=== PATIENT | female | born 1945 | race Caucasian/White ===

== ENCOUNTER 2017-12-04 16:47 | Emergency (ER) | payer MEDICARE, BC ==
[2017-12-04 18:32] VITALS: BP 154/73
--- NOTE | 2017-12-04 18:52 | EDM.PDOC ---
ED HPI GENERAL MEDICAL PROBLEM - General Chief Complaint: General Stated Complaint: fell 11/02/17 hit head Time Seen by Provider: 12/04/17 18:40 Source of Information: Reports: Patient, RN History Limitations: Reports: No Limitations - History of Present Illness INITIAL COMMENTS - FREE TEXT/NARRATIVE: 72 yr female presents with an injury from yesterday. She fell going into an airplane in [facility]. She fell forward into the plane and fell into a wall. She doesn't remember how she landed. States there was uneven ledge getting into the plane. States she was bruised to her forehead and had some numbness to her left arm, which has resolved. States no change in her vision. Abrasion to her forhead and top of head. States pain to right middle, upper arm and pain to lower part of neck. Pt did fly from [facility] to [place] and then to [place] and gave her a ride to [place], last night. States frequency with urination through the night. She is alert and talkative and sitting upright and bracing herself with sitting up with her arms. Head Pain Score (Numeric/FACES): 6 - Related Data Allergies Allergy/AdvReac Type Severity Reaction Status Date / Time heparin Allergy Cannot Verified 12/04/17 18:45 Remember latex Allergy Cannot Verified 12/04/17 18:45 Remember Penicillins Allergy Anaphylactic Verified 12/04/17 18:45 Shock Home Meds: Home Meds Aspirin [Halfprin] 81 mg PO DAILY 11/20/15 [History] Cinnamon Bark [Cinnamon] 500 mg PO DAILY 11/20/15 [History] Clobetasol [Clobetasol Propionate 0.05%] 30 gm TOP BID 11/20/15 [History] Cyanocobalamin (Vitamin B-12) [B-12] 1,000 mcg PO DAILY 11/20/15 [History] Diltiazem HCl [Tiazac] 180 mg PO DAILY 11/20/15 [History] Losartan [Cozaar] 50 mg PO DAILY 11/20/15 [History] Multivitamin with Minerals [Multiple Vitamin] 1 tab PO DAILY 11/20/15 [History] Pravastatin [Pravachol] 20 mg PO DAILY 11/20/15 [History] Pregabalin [Lyrica] 75 mg PO DAILY 11/20/15 [History] metFORMIN [Glucophage] 500 mg PO TID 11/20/15 [History] traMADol [Ultram] 50 mg PO BID 11/20/15 [History] Acetam/Butalbital/Caffeine/Cod [Fioricet/Codeine 970-55-48-30 MG] 1 cap PO DAILY PRN 12/04/17 [History] Furosemide [Furosemide] 40 mg PO DAILY PRN 12/04/17 [History] Gabapentin [Neurontin] 300 mg PO TID 12/04/17 [History] Past Medical History HEENT History: Reports: Impaired Vision Cardiovascular History: Reports: Hypertension 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 Denies: Weakness, Fatigue HEENT: Reports: Glasses. Denies: Dental Pain, Ear Pain, Eye Pain, Nosebleed, Nose Pain, Vertigo Respiratory: Reports: No Symptoms. Denies: Shortness of Breath Cardiovascular: Reports: No Symptoms. Denies: Chest Pain GI/Abdominal: Reports: No Symptoms : Reports: Frequency Musculoskeletal: Reports: Neck Pain, Arm Pain Skin: Reports: Bruising (to forehead, resolving), Other (abrasion to forehead.) Neurological: Reports: Headache. Denies: Confusion, Dizziness, Numbness, Tingling, Trouble Speaking, Difficulty Walking Psychiatric: Reports: Confusion (States not thinking clearly all the time.) Hematologic/Lymphatic: Reports: No Symptoms Immunologic: Reports: No Symptoms ED EXAM, GENERAL - Physical Exam Exam: See Below Exam Limited By: No Limitations General Appearance: Alert, No Apparent Distress Eye Exam: Bilateral Eye: PERRL Ears: Hearing Grossly Normal Ear Exam: Bilateral Ear: Auricle Normal Nose: Normal Inspection. No: Nasal Deformity Throat/Mouth: Normal Teeth, Normal Gums, Normal Voice, No Airway Compromise Head: Other (swelling to forehead, bruising resolving) Neck: Supple, Non-Tender, Full Range of Motion, Other (pain to lower cervical spine) Respiratory/Chest: No Respiratory Distress, Lungs Clear, Normal Breath Sounds. No: Respiratory Distress Cardiovascular: Regular Rate, Rhythm, No Edema Back Exam: Normal Inspection, Full Range of Motion Extremities: Normal Capillary Refill, Arm Pain (pain with palpation to humerus, midshaft). No: Leg Pain Neurological: Alert, Oriented, Normal Cognition, Normal Gait Psychiatric: Normal Affect, Normal Mood Skin Exam: Warm, Dry, Normal Color, Other (linear abrasion to forehead and abrasion to middle, top of head) Course - Vital Signs Last Recorded V/S: Last Vital Signs Temp 98.4 F 12/04/17 18:44 Pulse 99 12/04/17 18:44 Resp 16 12/04/17 18:44 BP 154/73 H 12/04/17 18:44 Pulse Ox 98 12/04/17 18:29 - Orders/Labs/Meds Orders: Active Orders 24 hr Category Date Time Status Cervical Spine 2V or 3V [CR] Stat Exams 12/04/17 18:46 Stop Req Cervical Spine wo Cont [CT] Stat Exams 12/04/17 18:54 Taken Head wo Cont [CT] Stat Exams 12/04/17 18:45 Taken Humerus Rt [CR] Stat Exams 12/04/17 18:45 Taken - Re-Assessments/Exams Free Text/Narrative Re-Assessment/Exam: 12/04/17 22:42 LE 1929 Notified pt and of CT and x-ray results with no fractures, no hemorrhage. Normal head CT and normal humerus x-ray. Degenerative changes to cervical spine, no fracture. Recommend use of Tylenol or Ibuprofen as needed for pain. Monitor for any changes or weakness and return if increase in symptoms. Pt walked to x-ray and to CT room without difficulty. No dizziness and no complaints. Will discharge to home and self care with assist of . Departure - Departure Time of Disposition: 19:40 Disposition: Home, Self-Care 01 Condition: Good Clinical Impression: History of fall, Right upper limb pain, Neck pain - Discharge Information Referrals: PCP,Unknown [Primary Care Provider] - Forms: ED Department Discharge Additional Instructions: May continue with ibuprofen according to package instructions as needed for pain. Follow up in clinic as needed. - My Orders Last 24 Hours: My Active Orders 12/04/17 18:45 Head wo Cont [CT] Stat Humerus Rt [CR] Stat 12/04/17 18:46 Cervical Spine 2V or 3V [CR] Stat 12/04/17 18:54 Cervical Spine wo Cont [CT] Stat - Assessment/Plan Last 24 Hours: My Active Orders 12/04/17 18:45 Head wo Cont [CT] Stat Humerus Rt [CR] Stat 12/04/17 18:46 Cervical Spine 2V or 3V [CR] Stat 12/04/17 18:54 Cervical Spine wo Cont [CT] Stat
--- NOTE | 2017-12-05 11:21 | CT ---
DATE OF SERVICE: 12/04/17 CLINICAL DATA: Injury UNENHANCED BRAIN CT: Multislice acquisition through the brain without IV contrast was performed. No priors. No masses or mass effect. No intracranial hemorrhage. No evidence of acute or subacute infarct. No fractures. IMPRESSION: Normal exam. [id number] [facility]
--- NOTE | 2017-12-05 11:24 | CR ---
DATE OF SERVICE: 12/04/17 CLINICAL DATA: Injury RIGHT HUMERUS: Two AP views were performed. No evidence of fracture or dislocation, however, a fracture cannot be excluded on a single projection. 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 [id number] [facility]
--- NOTE | 2017-12-05 11:30 | CT ---
DATE OF SERVICE: 12/04/17 CLINICAL DATA: Injury CERVICAL SPINE CT: Multislice axial acquisition was performed. Axial images and sagittal and coronal reformations are reviewed. No priors. Motion artifact does degrade image quality. There is reversal of the normal cervical lordosis on the sagittal reformations. This is most likely positional or due to muscle spasm. There is 2 mm anterolisthesis of C3 on C4 and of C4 on C5. No acute fracture or dislocation. No focal lytic or blastic bone lesions. There is degenerative disc disease at multiple levels, greatest at the C5-6 and C6-7 levels. There is annular bulging of the C3-4 disc. There is uncinate joint hypertrophy at this level. There is mild bilateral neural foramen stenosis. There is annular bulging of the C5-6 disc. It does produce ventral effacement of the dural sac. There is facet joint and uncinate joint hypertrophy at this level. There is mild central and mild neural foramen stenosis bilaterally. There is annular bulging of the C6-7 disc. It produces ventral effacement of the dural sac. There is uncinate joint hypertrophy at this level. There is mild central and mild neural foramen stenosis bilaterally. The soft tissues are unremarkable. No other significant findings. IMPRESSION: No acute abnormalities. Degenerative changes at multiple levels as discussed above. [id number] [facility]
== END 2017-12-04 20:37 | disposition home or self-care (01) ==
LOC: LB.ED 16:47
DX: S00.81XA Abrasion of other part of head, initial encounter (principal); M54.2 Cervicalgia; M79.621 Pain in right upper arm; E11.9 Type 2 diabetes mellitus without complications; I10 Essential (primary) hypertension; Z88.8 Allergy status to other drugs, medicaments and biological substances; Z91.040 Latex allergy status; Z88.0 Allergy status to penicillin; Z79.82 Long term (current) use of aspirin; Z79.899 Other long term (current) drug therapy; Z87.891 Personal history of nicotine dependence; V97.0XXA Occupant of aircraft injured in other specified air transport accidents, initial encounter
CPT/HCPCS: 70450; 72125; 73060-RT; 99283; 99283-25

== ENCOUNTER 2018-06-17 12:56 | Emergency (ER) | payer MEDICARE, BC | END 2018-06-17 13:00 | disposition home or self-care (01) | LOC: LB.ED 12:56 | DX: Z53.21 Procedure and treatment not carried out due to patient leaving prior to being seen by health care provider (principal) | CPT/HCPCS: 99281 ==

== ENCOUNTER 2019-08-04 18:33 | Inpatient (IN) | payer MEDICARE ==
[2019-08-04] MEDS ORDERED: Pantoprazole 80 MG in Sodium Chloride 0.9% 100 ML IV ONE (19:16)
[2019-08-04] MEDS ORDERED: Sodium Chloride 0.9% 10 ML Syringe FLUSH PRN ×2 (19:17→19:24)
--- NOTE | 2019-08-04 20:04 | EDM.PDOC ---
ED HPI GENERAL MEDICAL PROBLEM - General Chief Complaint: Gastrointestinal Problem Stated Complaint: BLACK STOOL & EMESIS, WEAKNESS Time Seen by Provider: 08/04/19 18:40 Source of Information: Reports: Patient History Limitations: Reports: No Limitations - History of Present Illness INITIAL COMMENTS - FREE TEXT/NARRATIVE: According to patient she has been having black tarry stools since today morning. Stools are small in volume and frequent . Strong smell to it. She has had 8 bouts of black stools. Her last episode was at 4:4=30 PM since then she has not had any more stools. No abdominal pain or bloating. No heartburn or dyspepsia symptoms.No fever or chills. Claims she feels weak. No blurry vision, no dizziness or syncope. Also she claims she vomited once in the afternoon, which had coffee ground coloured vomitus. Has not had any more. no nausea. pt has Kenalog shot yesterday for her shoulder pain. Onset: Today Onset Date: 08/04/19 Onset Time: 07:00 Severity: Moderate Associated Symptoms: Reports: Nausea/Vomiting, Weakness. Denies: Confusion, Chest Pain, Cough, Diaphoresis, Fever/Chills, Headaches, Rash, Seizure, Shortness of Breath, Syncope - Related Data Allergies Allergy/AdvReac Type Severity Reaction Status Date / Time heparin Allergy Cannot Verified 08/04/19 19:13 Remember latex Allergy Cannot Verified 08/04/19 19:13 Remember Penicillins Allergy Anaphylactic Verified 08/04/19 19:13 Shock Home Meds: Home Meds Aspirin [Halfprin] 81 mg PO DAILY 11/20/15 [History] Cinnamon Bark [Cinnamon] 500 mg PO DAILY 11/20/15 [History] Diltiazem HCl [Tiazac] 180 mg PO DAILY 11/20/15 [History] Losartan [Cozaar] 50 mg PO DAILY 11/20/15 [History] Multivitamin with Minerals [Multiple Vitamin] 1 tab PO DAILY 11/20/15 [History] Pravastatin [Pravachol] 40 mg PO BEDTIME 11/20/15 [History] Pregabalin [Lyrica] 75 mg PO DAILY 11/20/15 [History] metFORMIN [Glucophage] 500 mg PO TID 11/20/15 [History] traMADol [Ultram] 50 mg PO BID 11/20/15 [History] Acetam/Butalbital/Caffeine/Cod [Fioricet/Codeine 354-08-71-30 MG] 1 cap PO DAILY PRN 12/04/17 [History] Furosemide 40 mg PO DAILY PRN 12/04/17 [History] Past Medical History HEENT History: Reports: Impaired Vision Cardiovascular History: Reports: Hypertension 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 Denies: Fever, Chills HEENT: Denies: Ear Pain, Eye Discharge, Rhinitis, Sinus Problem Respiratory: Denies: Shortness of Breath, Cough, Sputum Cardiovascular: Denies: Chest Pain, Lightheadedness GI/Abdominal: Reports: Black Stool, Hematemesis, Melena, Vomiting. Denies: Abdominal Pain, Constipation, Diarrhea, Hematochezia, Nausea Musculoskeletal: Denies: Joint Pain, Joint Swelling Skin: Denies: Bruising, Pruritis, Rash Neurological: Denies: Confusion, Dizziness, Headache, Numbness, Tingling Psychiatric: Denies: Agitation, Anxiety, Confusion, Cravings, Depression ED EXAM, GENERAL - Physical Exam Exam: See Below Exam Limited By: No Limitations General Appearance: Alert, WD/WN, No Apparent Distress, Other (Pt is happy and very comfortnble in the exam room.) Eye Exam: Bilateral Eye: EOMI, PERRL Ears: Normal External Exam, Normal Canal, Hearing Grossly Normal, Normal TMs Ear Exam: Bilateral Ear: Auricle Normal, Canal Normal, TM normal Nose: Normal Inspection, Normal Mucosa, No Blood Throat/Mouth: Normal Inspection, Normal Lips, Normal Teeth, Normal Gums, Normal Oropharynx, Normal Voice, No Airway Compromise Head: Atraumatic, Normocephalic Neck: Normal Inspection, Supple, Non-Tender, Full Range of Motion Respiratory/Chest: No Respiratory Distress, Lungs Clear, Normal Breath Sounds, No Accessory Muscle Use, Chest Non-Tender Cardiovascular: Normal Peripheral Pulses, Regular Rate, Rhythm, No Edema, No Gallop, No JVD, No Murmur, No Rub GI/Abdominal: Normal Bowel Sounds, Soft, Non-Tender, No Organomegaly, No Distention, No Abnormal Bruit, No Mass Back Exam: Normal Inspection, Full Range of Motion, NT Extremities: Normal Inspection, Normal Range of Motion, Non-Tender, Normal Capillary Refill, No Pedal Edema Neurological: Alert, Oriented, CN II-XII Intact, Normal Cognition, Normal Gait, Normal Reflexes, No Motor/Sensory Deficits Skin Exam: Warm, Intact Course - Vital Signs Text/Narrative:: Pt is 73 year old female who has had several episodes of tarry stools over the day. Also she has been had one episode of coffee ground emesis today. Her vomitus sample she brought from home is positive for blood. Pt's vitals are stable. She does not have any abdominal pain or discomfort. She does have his of colonic diverticulosis. Considering her painless GI bleed, it does appear like diverticular bleed. Did get work up. Her CBC shows hemoglobin of 9.4 , which has dropped from 12.7 in 2018. Also her LFT is normal. BMP shows elevated potassium of 5.8 and her BUN is 104 and creat of 1.7. Her PT and PTT are normal. Lipase negative. CT abdomen and pelvis done today show no active blood in the GI tract. Does have severe diverticulosis.Her alerted renal function is related to her GI bleed. Plan is to admit patient for observation. Will repeat H/H at 11 PM. And if stable and if she does not have any more GI bleed, could repeat one at 7 AM. If she does have active bleed her next H/H should be at 3 am. If patient continue to have a drop in 3 serial H/H will have GI consult. If her H/H is stable, will plan on discharge in Am and have out patient Upper and Lower GI workup. It does appear like a diverticular bleed, which has stopped at this time, considering her painless GI bleed. - Orders/Labs/Meds Orders: Active Orders 24 hr Category Date Time Status Abdomen Pelvis wo Cont [CT] Stat Exams 08/04/19 19:11 Taken INR,PT,PROTHROMBIN TIME [COAG] Stat Lab 08/04/19 19:24 Ordered PTT,PARTIAL THROMBOPLSTIN TIME [COAG] Stat Lab 08/04/19 19:24 Ordered Sodium Chloride 0.9% [Saline Flush] Med 08/04/19 19:17 Active 10 ml FLUSH ASDIRECTED PRN Sodium Chloride 0.9% [Saline Flush] Med 08/04/19 19:24 Active 10 ml FLUSH ASDIRECTED PRN Peripheral IV Insertion Adult [OM.PC] Routine Oth 08/04/19 19:24 Ordered Medication Orders Sodium Chloride (Saline Flush) 10 ml FLUSH ASDIRECTED PRN PRN Reason: Keep Vein Open Sodium Chloride (Saline Flush) 10 ml FLUSH ASDIRECTED PRN PRN Reason: Keep Vein Open Labs: Laboratory Tests 08/04/19 08/04/19 08/04/19 Range/Units 19:00 19:00 19:00 WBC 8.8 D (4.0-11.0) K/uL RBC 3.36 L (3.80-5.80) M/uL Hgb 9.4 L D (11.5-16.5) g/dL Hct 29.3 L D (37.0-47.0) % MCV 87 (76-96) fL MCH 28.0 (27.0-32.0) pg MCHC 32.1 (31.0-35.0) g/dL RDW 13.3 (11.0-16.0) % Plt Count 313 (150-500) K/uL MPV 10.3 H (6.0-10.0) fL Neut % (Auto) 80.1 H (45.0-70.0) % Lymph % (Auto) 12.9 L (20.0-40.0) % Wilkes % (Auto) 6.8 (3.0-10.0) % Eos % (Auto) 0.0 L (1.0-5.0) % Baso % (Auto) 0.2 (0.0-0.5) % Neut # (Auto) 7.01 (2.00-7.50) K/uL Lymph # (Auto) 1.13 L (1.50-4.00) K/uL Wilkes # (Auto) 0.60 (0.20-0.80) K/uL Eos # (Auto) 0.00 L (0.04-0.40) K/uL Baso # (Auto) 0.02 (0.02-0.10) K/uL Sodium 138 (136-145) mmol/L Potassium 5.2 H (3.5-5.1) mmol/L Chloride 102 (98-107) mmol/L Carbon Dioxide 26.4 (21.0-32.0) mmol/L Anion Gap 14.8 (5.0-15.0) mmol/L BUN 102 H* D (8-26) mg/dL Creatinine 1.75 H D (0.55-1.02) mg/dL Est Cr Clr Drug Dosing 23.68 mL/min Estimated GFR (MDRD) 28 L (>60) MLS/MIN BUN/Creatinine Ratio 58.3 H (6-25) Glucose 336 H D (74-100) mg/dL Calcium 8.9 (8.5-10.1) mg/dL Total Bilirubin 0.3 (0.0-1.0) mg/dL AST 12 L (15-37) U/L ALT 15 (12-78) U/L Alkaline Phosphatase 54 (46-116) U/L Total Protein 6.9 (6.4-8.2) g/dL Albumin 3.0 L (3.4-5.0) g/dL Globulin 3.9 (2.2-4.2) g/dL Albumin/Globulin Ratio 0.8 (0.8-2.0) Lipase 212 D (73-393) U/L Meds: Medications Generic Name Dose Route Start Last Admin Trade Name Freq PRN Reason Stop Dose Admin Sodium Chloride 10 ml 08/04/19 19:17 Saline Flush FLUSH ASDIRECTED PRN Keep Vein Open Sodium Chloride 10 ml 08/04/19 19:24 Saline Flush FLUSH ASDIRECTED PRN Keep Vein Open Discontinued Medications Generic Name Dose Route Start Last Admin Trade Name Freq PRN Reason Stop Dose Admin Pantoprazole Sodium 80 mg/ 100 mls @ 200 mls/hr 08/04/19 19:16 08/04/19 19:30 Sodium Chloride IV 08/04/19 19:45 200 mls/hr .BOLUS ONE Administration Departure - Departure Time of Disposition: 20:20 Disposition: Home, Self-Care 01 Condition: Fair Clinical Impression: Acute lower GI bleeding - Discharge Information *PRESCRIPTION DRUG MONITORING PROGRAM REVIEWED*: Not Applicable *COPY OF PRESCRIPTION DRUG MONITORING REPORT IN PATIENT YING: Not Applicable - Problem List & Annotations (1) Acute lower GI bleeding SNOMED Code(s): 07836499 Code(s): K92.2 - GASTROINTESTINAL HEMORRHAGE, UNSPECIFIED Status: Acute Current Visit: Yes - Problem List Review Problem List Initiated/Reviewed/Updated: Yes - My Orders Last 24 Hours: My Active Orders 08/04/19 19:11 Abdomen Pelvis wo Cont [CT] Stat 08/04/19 19:17 Sodium Chloride 0.9% [Saline Flush] 10 ml FLUSH ASDIRECTED PRN 08/04/19 19:24 INR,PT,PROTHROMBIN TIME [COAG] Stat PTT,PARTIAL THROMBOPLSTIN TIME [COAG] Stat Sodium Chloride 0.9% [Saline Flush] 10 ml FLUSH ASDIRECTED PRN Peripheral IV Insertion Adult [OM.PC] Routine - Assessment/Plan Last 24 Hours: My Active Orders 08/04/19 19:11 Abdomen Pelvis wo Cont [CT] Stat 08/04/19 19:17 Sodium Chloride 0.9% [Saline Flush] 10 ml FLUSH ASDIRECTED PRN 08/04/19 19:24 INR,PT,PROTHROMBIN TIME [COAG] Stat PTT,PARTIAL THROMBOPLSTIN TIME [COAG] Stat Sodium Chloride 0.9% [Saline Flush] 10 ml FLUSH ASDIRECTED PRN Peripheral IV Insertion Adult [OM.PC] Routine Assessment:: Acute lower GI bleed Plan: Pt is 73 year old female who has had several episodes of tarry stools over the day. Also she has been had one episode of coffee ground emesis today. Her vomitus sample she brought from home is positive for blood. Pt's vitals are stable. She does not have any abdominal pain or discomfort. She does have his of colonic diverticulosis. Considering her painless GI bleed, it does appear like diverticular bleed. Did get work up. Her CBC shows hemoglobin of 9.4 , which has dropped from 12.7 in 2018. Also her LFT is normal. BMP shows elevated potassium of 5.8 and her BUN is 104 and creat of 1.7. Her PT and PTT are normal. Lipase negative. CT abdomen and pelvis done today show no active blood in the GI tract. Does have severe diverticulosis.Her alerted renal function is related to her GI bleed. Plan is to admit patient for observation. Will repeat H/H at 11 PM. And if stable and if she does not have any more GI bleed, could repeat one at 7 AM. If she does have active bleed her next H/H should be at 3 am. If patient continue to have a drop in 3 serial H/H will have GI consult. If her H/H is stable, will plan on discharge in Am and have out patient Upper and Lower GI workup. It does appear like a diverticular bleed, which has stopped at this time, considering her painless GI bleed.
[2019-08-04] MEDS: Sodium Chloride 0.9% 1,000 ML IV SCH (21:00)
[2019-08-05] MEDS: Pantoprazole 40 MG Vial IVPUSH SCH (08:03)
[2019-08-05] MEDS: Sodium Chloride 0.9% 1,000 ML IV SCH ×2 (08:32→20:27)
[2019-08-05] MEDS ORDERED: Furosemide 40 MG Tab PO PRN (08:53)
--- NOTE | 2019-08-05 09:08 | PCM.PN ---
- General Info Date of Service: 08/05/19 Subjective Update: PLEASE USE H&P for INPATIENT ADMIT This is a 73yo F who was placed in observation for GI bleeding and weakness. Her hemoglobin has steadily declined and she has continued active bleeding per rectum. Patient continues to feel weak and tired. She continues to have tarry stools. Denies any shortness of breath or chest pain. Her labs show persistent end organ damage of the kidnys. - Review of Systems General: Reports: Weakness, Fatigue HEENT: Reports: No Symptoms Pulmonary: Reports: No Symptoms Cardiovascular: Reports: No Symptoms Gastrointestinal: Reports: Decreased Appetite, Melena Genitourinary: Reports: No Symptoms Musculoskeletal: Reports: No Symptoms Skin: Reports: No Symptoms Neurological: Reports: Weakness - Patient Data Vitals - Most Recent: Last Vital Signs Temp 36.9 C 08/05/19 08:00 Pulse 96 08/05/19 08:00 Resp 18 08/05/19 08:00 BP 147/57 H 08/05/19 08:00 Pulse Ox 98 08/05/19 08:00 Weight - Most Recent: 91.898 kg I&O - Last 24 Hours: Intake & Output 08/04/19 08/05/19 08/05/19 22:59 06:59 14:59 Intake Total 1000 Output Total 1100 Balance -100 Lab Results Last 24 Hours: Laboratory Results - last 24 hr 08/04/19 08/04/19 08/04/19 Range/Units 19:00 19:00 19:00 WBC (4.0-11.0) K/uL RBC (3.80-5.80) M/uL Hgb (11.5-16.5) g/dL Hct (37.0-47.0) % MCV (76-96) fL MCH (27.0-32.0) pg MCHC (31.0-35.0) g/dL RDW (11.0-16.0) % Plt Count (150-500) K/uL MPV (6.0-10.0) fL Neut % (Auto) (45.0-70.0) % Lymph % (Auto) (20.0-40.0) % [place] % (Auto) (3.0-10.0) % Eos % (Auto) (1.0-5.0) % Baso % (Auto) (0.0-0.5) % Neut # (Auto) (2.00-7.50) K/uL Lymph # (Auto) (1.50-4.00) K/uL [place] # (Auto) (0.20-0.80) K/uL Eos # (Auto) (0.04-0.40) K/uL Baso # (Auto) (0.02-0.10) K/uL PT 10.5 (9.0-11.5) sec INR 1.1 (1.0-3.5) APTT 18.8 L (24.4-33.2) SECONDS Sodium 138 (136-145) mmol/L Potassium 5.2 H (3.5-5.1) mmol/L Chloride 102 (98-107) mmol/L Carbon Dioxide 26.4 (21.0-32.0) mmol/L Anion Gap 14.8 (5.0-15.0) mmol/L BUN 102 H* D (8-26) mg/dL Creatinine 1.75 H D (0.55-1.02) mg/dL Est Cr Clr Drug Dosing 23.68 mL/min Estimated GFR (MDRD) 28 L (>60) MLS/MIN BUN/Creatinine Ratio 58.3 H (6-25) Glucose 336 H D (74-100) mg/dL Calcium 8.9 (8.5-10.1) mg/dL Total Bilirubin 0.3 (0.0-1.0) mg/dL AST 12 L (15-37) U/L ALT 15 (12-78) U/L Alkaline Phosphatase 54 (46-116) U/L Total Protein 6.9 (6.4-8.2) g/dL Albumin 3.0 L (3.4-5.0) g/dL Globulin 3.9 (2.2-4.2) g/dL Albumin/Globulin Ratio 0.8 (0.8-2.0) Lipase 212 D (73-393) U/L 08/04/19 08/04/19 08/05/19 Range/Units 19:00 23:00 07:15 WBC 8.8 D 8.6 (4.0-11.0) K/uL RBC 3.36 L 2.95 L (3.80-5.80) M/uL Hgb 9.4 L D 8.8 L 8.2 L (11.5-16.5) g/dL Hct 29.3 L D 27.9 L 25.5 L (37.0-47.0) % MCV 87 86 (76-96) fL MCH 28.0 27.8 (27.0-32.0) pg MCHC 32.1 32.2 (31.0-35.0) g/dL RDW 13.3 13.4 (11.0-16.0) % Plt Count 313 282 (150-500) K/uL MPV 10.3 H 10.5 H (6.0-10.0) fL Neut % (Auto) 80.1 H 71.0 H (45.0-70.0) % Lymph % (Auto) 12.9 L 21.2 (20.0-40.0) % [place] % (Auto) 6.8 7.2 (3.0-10.0) % Eos % (Auto) 0.0 L 0.1 L (1.0-5.0) % Baso % (Auto) 0.2 0.5 (0.0-0.5) % Neut # (Auto) 7.01 6.11 (2.00-7.50) K/uL Lymph # (Auto) 1.13 L 1.82 (1.50-4.00) K/uL [place] # (Auto) 0.60 0.62 (0.20-0.80) K/uL Eos # (Auto) 0.00 L 0.01 L (0.04-0.40) K/uL Baso # (Auto) 0.02 0.04 (0.02-0.10) K/uL PT (9.0-11.5) sec INR (1.0-3.5) APTT (24.4-33.2) SECONDS Sodium (136-145) mmol/L Potassium (3.5-5.1) mmol/L Chloride (98-107) mmol/L Carbon Dioxide (21.0-32.0) mmol/L Anion Gap (5.0-15.0) mmol/L BUN (8-26) mg/dL Creatinine (0.55-1.02) mg/dL Est Cr Clr Drug Dosing mL/min Estimated GFR (MDRD) (>60) MLS/MIN BUN/Creatinine Ratio (6-25) Glucose (74-100) mg/dL Calcium (8.5-10.1) mg/dL Total Bilirubin (0.0-1.0) mg/dL AST (15-37) U/L ALT (12-78) U/L Alkaline Phosphatase (46-116) U/L Total Protein (6.4-8.2) g/dL Albumin (3.4-5.0) g/dL Globulin (2.2-4.2) g/dL Albumin/Globulin Ratio (0.8-2.0) Lipase (73-393) U/L 08/05/19 Range/Units 07:15 WBC (4.0-11.0) K/uL RBC (3.80-5.80) M/uL Hgb (11.5-16.5) g/dL Hct (37.0-47.0) % MCV (76-96) fL MCH (27.0-32.0) pg MCHC (31.0-35.0) g/dL RDW (11.0-16.0) % Plt Count (150-500) K/uL MPV (6.0-10.0) fL Neut % (Auto) (45.0-70.0) % Lymph % (Auto) (20.0-40.0) % [place] % (Auto) (3.0-10.0) % Eos % (Auto) (1.0-5.0) % Baso % (Auto) (0.0-0.5) % Neut # (Auto) (2.00-7.50) K/uL Lymph # (Auto) (1.50-4.00) K/uL [place] # (Auto) (0.20-0.80) K/uL Eos # (Auto) (0.04-0.40) K/uL Baso # (Auto) (0.02-0.10) K/uL PT (9.0-11.5) sec INR (1.0-3.5) APTT (24.4-33.2) SECONDS Sodium 139 (136-145) mmol/L Potassium 4.7 (3.5-5.1) mmol/L Chloride 107 (98-107) mmol/L Carbon Dioxide 24.7 (21.0-32.0) mmol/L Anion Gap 12.0 (5.0-15.0) mmol/L BUN 105 H* (8-26) mg/dL Creatinine 1.48 H (0.55-1.02) mg/dL Est Cr Clr Drug Dosing 28.00 mL/min Estimated GFR (MDRD) 35 L (>60) MLS/MIN BUN/Creatinine Ratio 70.9 H (6-25) Glucose 203 H D (74-100) mg/dL Calcium 8.4 L (8.5-10.1) mg/dL Total Bilirubin (0.0-1.0) mg/dL AST (15-37) U/L ALT (12-78) U/L Alkaline Phosphatase (46-116) U/L Total Protein (6.4-8.2) g/dL Albumin (3.4-5.0) g/dL Globulin (2.2-4.2) g/dL Albumin/Globulin Ratio (0.8-2.0) Lipase (73-393) U/L [place] Results Last 24 Hours: Microbiology 08/04/19 19:05 Gastric Occult Blood - Final Gastric Fluid Med Orders - Current: Current Medications Furosemide (Lasix) 40 mg PO DAILY PRN PRN Reason: Edema Sodium Chloride (Normal Saline) 1,000 mls @ 100 mls/hr IV ASDIRECTED [facility] Last Admin: 08/05/19 08:32 Dose: 100 mls/hr Losartan Potassium (Cozaar) 50 mg PO DAILY [facility] Metformin HCl (Glucophage) 500 mg PO TID [facility] Non-Formulary Medication (Diltiazem Hcl [Tiazac]) 180 mg PO DAILY [facility] Non-Formulary Medication (Multivitamin With Minerals [Multiple Vitamin]) 1 tab PO DAILY [facility] Pantoprazole Sodium (Protonix Iv) 40 mg IVPUSH DAILY [facility] Last Admin: 08/05/19 08:03 Dose: 40 mg Pravastatin Sodium (Pravachol) 40 mg PO BEDTIME [facility] Sodium Chloride (Saline Flush) 10 ml FLUSH ASDIRECTED PRN PRN Reason: Keep Vein Open Discontinued Medications Pantoprazole Sodium 80 mg/ (Sodium Chloride) 100 mls @ 200 mls/hr IV .BOLUS ONE Stop: 08/04/19 19:45 Last Admin: 08/04/19 19:30 Dose: 200 mls/hr Sodium Chloride (Saline Flush) 10 ml FLUSH ASDIRECTED PRN PRN Reason: Keep Vein Open - Exam General: Alert, Oriented, Cooperative HEENT: Pupils Equal, Pupils Reactive, EOMI Neck: Supple Lungs: Clear to Auscultation, Normal Respiratory Effort Cardiovascular: Regular Rate, Regular Rhythm GI/Abdominal Exam: Normal Bowel Sounds, Soft, Non-Tender Back Exam: Normal Inspection Extremities: Normal Inspection, Normal Range of Motion Peripheral Pulses: 2+: Dorsalis Pedis (L), Dorsalis Pedis (R) Skin: Warm, Dry, Intact Neurological: No New Focal Deficit Psy/Mental Status: Alert, Normal Affect, Normal Mood - Problem List & Annotations (1) Upper GI bleeding SNOMED Code(s): 17229180 Code(s): K92.2 - GASTROINTESTINAL HEMORRHAGE, UNSPECIFIED Status: Acute Priority: High Current Visit: Yes (2) Drop in hematocrit SNOMED Code(s): 158095356 Code(s): R71.0 - PRECIPITOUS DROP IN HEMATOCRIT Status: Acute Priority: High Current Visit: Yes (3) Hemoglobin drop SNOMED Code(s): 944668062 Code(s): R71.0 - PRECIPITOUS DROP IN HEMATOCRIT Status: Acute Priority: High Current Visit: Yes (4) Acute renal insufficiency SNOMED Code(s): 176793229 Code(s): N28.9 - DISORDER OF KIDNEY AND URETER, UNSPECIFIED Status: Acute Priority: High Current Visit: Yes - Problem List Review Problem List Initiated/Reviewed/Updated: Yes - My Orders Last 24 Hours: My Active Orders 08/05/19 08:50 Patient Status [ADT] Routine Oxygen Therapy [RC] PRN Vital Signs [RC] Q4H 08/05/19 08:53 Furosemide [Lasix] 40 mg PO DAILY PRN 08/05/19 14:00 metFORMIN [Glucophage] 500 mg PO TID 08/05/19 20:00 Pravastatin [Pravachol] 40 mg PO BEDTIME 08/06/19 08:00 Diltiazem HCl [Tiazac] 180 mg PO DAILY Losartan [Cozaar] 50 mg PO DAILY Multivitamin with Minerals [Multiple Vitamin] 1 tab PO DAILY - Plan Plan:: Patient to be admitted to inpatient for ongoing active GI bleed with decreasing hematocrit as following during observation. Patient also shows acute renal insufficiency as resulting end-organ damage from likely anemia secondary to GI bleed. We will continued close monitoring for the need to transfer or transfuse. Monitor vitals closely. Repeat labs in am.
--- NOTE | 2019-08-05 09:18 | CT ---
DATE OF SERVICE: 08/04/19 CLINICAL DATA: SUSPECTED GI BLEED UNENHANCED ABDOMEN AND PELVIC CT: Multislice acquisition through the abdomen and pelvis without IV or oral contrast was performed. Comparison is made to a prior exam dated 11/20/15. The lung bases are clear. The liver is normal size with homogeneous attenuation. No focal hepatic lesions. The gallbladder appears normal. The spleen appears normal. The pancreas appears normal. The right and left adrenals appear normal. There are low density lesions in both kidneys consistent with bilateral renal cysts. The kidneys otherwise appear normal. No nephrocalcinosis or nephrolithiasis. No hydronephrosis or hydroureter. The bladder is partially fluid-filled. It appears normal. The patient is status post hysterectomy. No evidence of appendicitis. There is diverticulosis of the descending and sigmoid colon. No evidence of diverticulitis. No free air. No free fluid. No dilated loops of bowel. No adenopathy. No aortic aneurysm. There is a small umbilical hernia containing fat. There is degenerative disc disease throughout the lower thoracic and lumbar spine. There is a partial compression fracture of the T12 vertebra. There is also mild compression deformity of the superior endplate of L3. No other significant findings. IMPRESSION: No acute abnormalities. Other findings as discussed above. [id number] [facility]
[2019-08-05] MEDS: metFORMIN 500 MG Tab PO SCH ×2 (12:15→17:55)
[2019-08-05] MEDS: Pravastatin 40 MG Tab PO SCH (20:26)
[2019-08-06] MEDS: Pantoprazole 40 MG Vial IVPUSH SCH (07:35)
[2019-08-06] MEDS: metFORMIN 500 MG Tab PO SCH ×3 (07:44→17:16)
[2019-08-06] MEDS: Multivitamins with Iron/Calcium/Folic Acid/Minerals Tab PO SCH (07:44)
[2019-08-06] MEDS: Diltiazem 180 MG Cap.CD PO SCH (07:44)
[2019-08-06] MEDS: Losartan 50 MG Tab PO SCH (07:45)
--- NOTE | 2019-08-06 10:07 | PCM.PN ---
- General Info Date of Service: 08/06/19 Subjective Update: Patient has worsening symptoms. She feels weaker and fatigued. She notes improved melena. Denies any fever or chills. No chest pain or other concerns. - Review of Systems General: Reports: Weakness, Fatigue HEENT: Reports: No Symptoms Pulmonary: Reports: No Symptoms Cardiovascular: Reports: No Symptoms Gastrointestinal: Reports: Melena Genitourinary: Reports: No Symptoms Musculoskeletal: Reports: No Symptoms - Patient Data Vitals - Most Recent: Last Vital Signs Temp 36.6 C 08/06/19 08:35 Pulse 97 08/06/19 08:35 Resp 16 08/06/19 08:35 BP 159/99 H 08/06/19 08:35 Pulse Ox 94 L 08/06/19 08:35 Weight - Most Recent: 91.898 kg I&O - Last 24 Hours: Intake & Output 08/05/19 08/06/19 08/06/19 22:59 06:59 14:59 Intake Total 1025 Output Total 350 Balance -350 1025 Lab Results Last 24 Hours: Laboratory Results - last 24 hr 08/06/19 08/06/19 Range/Units 07:25 07:25 WBC 6.6 D (4.0-11.0) K/uL RBC 2.70 L (3.80-5.80) M/uL Hgb 7.7 L (11.5-16.5) g/dL Hct 23.4 L (37.0-47.0) % MCV 87 (76-96) fL MCH 28.5 (27.0-32.0) pg MCHC 32.9 (31.0-35.0) g/dL RDW 13.1 (11.0-16.0) % Plt Count 278 (150-500) K/uL MPV 10.4 H (6.0-10.0) fL Neut % (Auto) 68.3 (45.0-70.0) % Lymph % (Auto) 21.7 (20.0-40.0) % [place] % (Auto) 8.9 (3.0-10.0) % Eos % (Auto) 0.5 L (1.0-5.0) % Baso % (Auto) 0.6 H (0.0-0.5) % Neut # (Auto) 4.54 (2.00-7.50) K/uL Lymph # (Auto) 1.44 L (1.50-4.00) K/uL [place] # (Auto) 0.59 (0.20-0.80) K/uL Eos # (Auto) 0.03 L (0.04-0.40) K/uL Baso # (Auto) 0.04 (0.02-0.10) K/uL Sodium 144 (136-145) mmol/L Potassium 4.3 (3.5-5.1) mmol/L Chloride 111 H (98-107) mmol/L Carbon Dioxide 23.5 (21.0-32.0) mmol/L Anion Gap 13.8 (5.0-15.0) mmol/L BUN 62 H* D (8-26) mg/dL Creatinine 1.20 H (0.55-1.02) mg/dL Est Cr Clr Drug Dosing 34.54 mL/min Estimated GFR (MDRD) 44 L (>60) MLS/MIN BUN/Creatinine Ratio 51.7 H (6-25) Glucose 166 H (74-100) mg/dL Calcium 8.5 (8.5-10.1) mg/dL [place] Results Last 24 Hours: Microbiology 08/04/19 22:32 MRSA Surveillance Culture - Final Nares, Right NO MRSA ISOLATED Med Orders - Current: Current Medications Diltiazem HCl (Cardizem Cd) 180 mg PO DAILY [facility] Last Admin: 08/06/19 07:44 Dose: 180 mg Furosemide (Lasix) 40 mg PO DAILY PRN PRN Reason: Edema Losartan Potassium (Cozaar) 50 mg PO DAILY [facility] Last Admin: 08/06/19 07:45 Dose: 50 mg Metformin HCl (Glucophage) 500 mg PO TIDMEALS [facility] Last Admin: 08/06/19 07:44 Dose: 500 mg Multivitamins/Minerals (Thera M Plus) 1 tab PO DAILY [facility] Last Admin: 08/06/19 07:44 Dose: 1 tab Pantoprazole Sodium (Protonix Iv) 40 mg IVPUSH DAILY [facility] Last Admin: 08/06/19 07:35 Dose: 40 mg Pravastatin Sodium (Pravachol) 40 mg PO BEDTIME [facility] Last Admin: 08/05/19 20:26 Dose: 40 mg Sodium Chloride (Saline Flush) 10 ml FLUSH ASDIRECTED PRN PRN Reason: Keep Vein Open Discontinued Medications Pantoprazole Sodium 80 mg/ (Sodium Chloride) 100 mls @ 200 mls/hr IV .BOLUS ONE Stop: 08/04/19 19:45 Last Admin: 08/04/19 19:30 Dose: 200 mls/hr Sodium Chloride (Normal Saline) 1,000 mls @ 100 mls/hr IV ASDIRECTED [facility] Last Admin: 08/05/19 20:27 Dose: 100 mls/hr Sodium Chloride (Saline Flush) 10 ml FLUSH ASDIRECTED PRN PRN Reason: Keep Vein Open - Exam General: Alert, Oriented, Cooperative HEENT: Pupils Equal, Pupils Reactive, EOMI Neck: Supple Lungs: Clear to Auscultation, Normal Respiratory Effort Cardiovascular: Regular Rate, Regular Rhythm GI/Abdominal Exam: Normal Bowel Sounds, Soft, Non-Tender Back Exam: Normal Inspection Extremities: Normal Inspection - Problem List & Annotations (1) Upper GI bleeding SNOMED Code(s): 22962716 Code(s): K92.2 - GASTROINTESTINAL HEMORRHAGE, UNSPECIFIED Status: Acute Priority: High Current Visit: Yes (2) Drop in hematocrit SNOMED Code(s): 624740066 Code(s): R71.0 - PRECIPITOUS DROP IN HEMATOCRIT Status: Acute Priority: High Current Visit: Yes (3) Hemoglobin drop SNOMED Code(s): 217948753 Code(s): R71.0 - PRECIPITOUS DROP IN HEMATOCRIT Status: Acute Priority: High Current Visit: Yes (4) Acute renal insufficiency SNOMED Code(s): 687347461 Code(s): N28.9 - DISORDER OF KIDNEY AND URETER, UNSPECIFIED Status: Acute Priority: High Current Visit: Yes - Problem List Review Problem List Initiated/Reviewed/Updated: Yes - My Orders Last 24 Hours: My Active Orders 08/05/19 12:00 metFORMIN [Glucophage] 500 mg PO TIDMEALS 08/05/19 20:00 Pravastatin [Pravachol] 40 mg PO BEDTIME 08/06/19 08:00 Diltiazem [Cardizem CD] 180 mg PO DAILY Losartan [Cozaar] 50 mg PO DAILY Multivitamins w-Iron/Ca/FA/Min [Thera M Plus] 1 tab PO DAILY 08/06/19 10:03 RED BLOOD CELLS LP [BBK] Routine Transfuse Red Blood Cells [COMM] Routine - Plan Plan:: Patient to be admitted to inpatient for ongoing active GI bleed with decreasing hematocrit as following during observation. Patient also shows acute renal insufficiency as resulting end-organ damage from likely anemia secondary to GI bleed. We will continued close monitoring for the need to transfer or transfuse. Monitor vitals closely. Repeat labs in am. There is worsening hemoglobin and discussed transfusion with the patient. Patient agrees and has considered risks vs benefits. 2 Units of PRBCs to be transfused. Consent obtained. Counseled on slightly improved renal function. F/u labs in am after transfusion.
[2019-08-06] MEDS: Pravastatin 40 MG Tab PO SCH (19:58)
[2019-08-07] MEDS ORDERED: diphenhydrAMINE 50 MG Cap PO ONE (01:03)
[2019-08-07] MEDS: Diltiazem 180 MG Cap.CD PO SCH (07:59)
[2019-08-07] MEDS: metFORMIN 500 MG Tab PO SCH ×3 (08:00→17:08)
[2019-08-07] MEDS: Multivitamins with Iron/Calcium/Folic Acid/Minerals Tab PO SCH (08:00)
[2019-08-07] MEDS: Pantoprazole 40 MG Vial IVPUSH SCH (08:00)
[2019-08-07] MEDS: Losartan 50 MG Tab PO SCH (08:01)
[2019-08-07] MEDS ORDERED: Acetaminophen 500 MG Tab PO ONE (08:28)
[2019-08-07] MEDS: Pravastatin 40 MG Tab PO SCH (21:00)
[2019-08-07] MEDS ORDERED: diphenhydrAMINE 50 MG/ML SDV ONE (22:21)
[2019-08-07] MEDS ORDERED: diphenhydrAMINE 25 MG Cap ONE (22:22)
[2019-08-08] MEDS: Multivitamins with Iron/Calcium/Folic Acid/Minerals Tab PO SCH (09:15)
[2019-08-08] MEDS: Diltiazem 180 MG Cap.CD PO SCH (09:16)
[2019-08-08] MEDS: Losartan 50 MG Tab PO SCH (09:16)
[2019-08-08] MEDS: Pantoprazole 40 MG Vial IVPUSH SCH (09:17)
[2019-08-08] MEDS: metFORMIN 500 MG Tab PO SCH (09:20)
[2019-08-08 09:21] VITALS: BP 142/64; PULSE 91
--- NOTE | 2019-08-08 10:07 | PCM.PN ---
- General Info Date of Service: 08/07/19 Subjective Update: This is a 73yo F with a headache today post transfusion. She denies any visual concerns and does feel slightly improved. No fever or chills. No shortness of breath or chest pain. She notes some improvement in weakness. - Review of Systems General: Reports: Weakness HEENT: Reports: No Symptoms Pulmonary: Reports: No Symptoms Cardiovascular: Reports: No Symptoms Gastrointestinal: Reports: Melena Genitourinary: Reports: No Symptoms Musculoskeletal: Reports: No Symptoms - Patient Data Vitals - Most Recent: Last Vital Signs Temp 36.3 C 08/08/19 08:00 Pulse 91 08/08/19 09:16 Resp 16 08/08/19 08:00 BP 142/64 H 08/08/19 09:16 Pulse Ox 95 08/08/19 08:00 Weight - Most Recent: 91.898 kg I&O - Last 24 Hours: Intake & Output 08/07/19 08/08/19 08/08/19 22:59 06:59 14:59 Intake Total 600 300 Output Total 1000 400 Balance -400 -100 Lab Results Last 24 Hours: Laboratory Results - last 24 hr 08/07/19 08/08/19 08/08/19 Range/Units 16:50 08:17 08:20 WBC 9.1 (4.0-11.0) K/uL RBC 3.99 (3.80-5.80) M/uL Hgb 11.4 L (11.5-16.5) g/dL Hct 33.9 L (37.0-47.0) % MCV 85 (76-96) fL MCH 28.6 (27.0-32.0) pg MCHC 33.6 (31.0-35.0) g/dL RDW 13.9 (11.0-16.0) % Plt Count 310 (150-500) K/uL MPV 9.9 (6.0-10.0) fL Neut % (Auto) 68.7 (45.0-70.0) % Lymph % (Auto) 21.4 (20.0-40.0) % [place] % (Auto) 8.8 (3.0-10.0) % Eos % (Auto) 1.0 (1.0-5.0) % Baso % (Auto) 0.1 (0.0-0.5) % Neut # (Auto) 6.28 (2.00-7.50) K/uL Lymph # (Auto) 1.95 (1.50-4.00) K/uL [place] # (Auto) 0.80 (0.20-0.80) K/uL Eos # (Auto) 0.09 (0.04-0.40) K/uL Baso # (Auto) 0.01 L (0.02-0.10) K/uL POC Glucose 165 H 178 H (74-110) mg/dL Med Orders - Current: Current Medications Diltiazem HCl (Cardizem Cd) 180 mg PO DAILY [facility] Last Admin: 08/08/19 09:16 Dose: 180 mg Furosemide (Lasix) 40 mg PO DAILY PRN PRN Reason: Edema Losartan Potassium (Cozaar) 50 mg PO DAILY [facility] Last Admin: 08/08/19 09:16 Dose: 50 mg Metformin HCl (Glucophage) 500 mg PO TIDMEALS [facility] Last Admin: 08/08/19 09:20 Dose: 500 mg Multivitamins/Minerals (Thera M Plus) 1 tab PO DAILY [facility] Last Admin: 08/08/19 09:15 Dose: 1 tab Pantoprazole Sodium (Protonix Iv) 40 mg IVPUSH DAILY [facility] Last Admin: 08/08/19 09:17 Dose: 40 mg Pravastatin Sodium (Pravachol) 40 mg PO BEDTIME [facility] Last Admin: 08/07/19 21:00 Dose: 40 mg Sodium Chloride (Saline Flush) 10 ml FLUSH ASDIRECTED PRN PRN Reason: Keep Vein Open Discontinued Medications Acetaminophen (Tylenol Extra Strength) 1,000 mg PO ONETIME ONE Stop: 08/07/19 08:29 Last Admin: 08/07/19 08:30 Dose: 1,000 mg Diphenhydramine HCl (Benadryl) 50 mg PO ONETIME ONE Stop: 08/07/19 01:04 Last Admin: 08/07/19 01:18 Dose: 50 mg Diphenhydramine HCl (Benadryl) Confirm Administered Dose 50 mg .ROUTE .STK-MED ONE Stop: 08/07/19 22:22 Diphenhydramine HCl (Benadryl) Confirm Administered Dose 25 mg .ROUTE .STK-MED ONE Stop: 08/07/19 22:23 Last Admin: 08/07/19 22:42 Dose: 25 mg Pantoprazole Sodium 80 mg/ (Sodium Chloride) 100 mls @ 200 mls/hr IV .BOLUS ONE Stop: 08/04/19 19:45 Last Admin: 08/04/19 19:30 Dose: 200 mls/hr Sodium Chloride (Normal Saline) 1,000 mls @ 100 mls/hr IV ASDIRECTED [facility] Last Admin: 08/05/19 20:27 Dose: 100 mls/hr Sodium Chloride (Saline Flush) 10 ml FLUSH ASDIRECTED PRN PRN Reason: Keep Vein Open - Exam General: Alert, Oriented, Cooperative HEENT: Pupils Equal, Pupils Reactive, EOMI Neck: Supple Lungs: Clear to Auscultation, Normal Respiratory Effort Cardiovascular: Regular Rate, Regular Rhythm GI/Abdominal Exam: Normal Bowel Sounds Extremities: Normal Inspection Peripheral Pulses: 2+: Dorsalis Pedis (L), Dorsalis Pedis (R) Skin: Warm, Dry, Intact - Problem List & Annotations (1) Upper GI bleeding SNOMED Code(s): 55151545 Code(s): K92.2 - GASTROINTESTINAL HEMORRHAGE, UNSPECIFIED Status: Acute Priority: High (2) Drop in hematocrit SNOMED Code(s): 849460112 Code(s): R71.0 - PRECIPITOUS DROP IN HEMATOCRIT Status: Acute Priority: High (3) Hemoglobin drop SNOMED Code(s): 937002707 Code(s): R71.0 - PRECIPITOUS DROP IN HEMATOCRIT Status: Acute Priority: High (4) Acute renal insufficiency SNOMED Code(s): 644758837 Code(s): N28.9 - DISORDER OF KIDNEY AND URETER, UNSPECIFIED Status: Acute Priority: High - Problem List Review Problem List Initiated/Reviewed/Updated: Yes - My Orders Last 24 Hours: My Active Orders 08/08/19 08:17 BASIC METABOLIC PANEL,BMP [CHEM] Routine 08/08/19 10:07 Ready for Discharge [RC] PER UNIT ROUTINE - Plan Plan:: Patient to be admitted to inpatient for ongoing active GI bleed with decreasing hematocrit as following during observation. Patient also shows acute renal insufficiency as resulting end-organ damage from likely anemia secondary to GI bleed. We will continued close monitoring for the need to transfer or transfuse. Monitor vitals closely. Repeat labs in am. There is worsening hemoglobin and discussed transfusion with the patient. Patient agrees and has considered risks vs benefits. 2 Units of PRBCs to be transfused. Consent obtained. Counseled on slightly improved renal function. F/u labs in am after transfusion. 08/07/19 Patient counseled on labs. F/u recheck of labs in AM. Discussed discharge planning possibly for tomorrow. No changes to care.
--- NOTE | 2019-08-08 10:30 | PCM.DCSUM1 ---
Discharge Summary - Discharge Data Discharge Date: 08/08/19 Discharge Disposition: Home, Self-Care 01 Condition: Good - Referral to Home Health Primary Care Physician: PCP None - Discharge Diagnosis/Problem(s) (1) Upper GI bleeding SNOMED Code(s): 82236236 ICD Code: K92.2 - GASTROINTESTINAL HEMORRHAGE, UNSPECIFIED Status: Acute Priority: High (2) Drop in hematocrit SNOMED Code(s): 603387839 ICD Code: R71.0 - PRECIPITOUS DROP IN HEMATOCRIT Status: Acute Priority: High (3) Hemoglobin drop SNOMED Code(s): 847411749 ICD Code: R71.0 - PRECIPITOUS DROP IN HEMATOCRIT Status: Acute Priority: High (4) Acute renal insufficiency SNOMED Code(s): 234821493 ICD Code: N28.9 - DISORDER OF KIDNEY AND URETER, UNSPECIFIED Status: Acute Priority: High - Patient Instructions Diet: Usual Diet as Tolerated Activity: As Tolerated Driving: May Drive Today - Discharge Plan *PRESCRIPTION DRUG MONITORING PROGRAM REVIEWED*: Not Applicable *COPY OF PRESCRIPTION DRUG MONITORING REPORT IN PATIENT YING: Not Applicable Home Medications: Home Meds Aspirin [Halfprin] 81 mg PO DAILY 11/20/15 [History] Cinnamon Bark [Cinnamon] 500 mg PO DAILY 11/20/15 [History] Diltiazem HCl [Tiazac] 180 mg PO DAILY 11/20/15 [History] Losartan [Cozaar] 50 mg PO DAILY 11/20/15 [History] Multivitamin with Minerals [Multiple Vitamin] 1 tab PO DAILY 11/20/15 [History] Pravastatin [Pravachol] 40 mg PO BEDTIME 11/20/15 [History] Pregabalin [Lyrica] 75 mg PO DAILY 11/20/15 [History] metFORMIN [Glucophage] 500 mg PO TID 11/20/15 [History] traMADol [Ultram] 50 mg PO BID 11/20/15 [History] Acetam/Butalbital/Caffeine/Cod [Fioricet/Codeine [id number] MG] 1 cap PO DAILY PRN 12/04/17 [History] Furosemide 40 mg PO DAILY PRN 12/04/17 [History] Patient Handouts: Gastrointestinal Bleeding, [id number] Forms: ED Department Discharge Referrals: PCP,None [Primary Care Provider] - - Discharge Summary/Plan Comment DC Time >30 min.: No Discharge Summary/Plan Comment: Counseled on routine health maintenance and f/u CBC in 1-3 months. Discussed close monitoring and f/u for any return of symptoms ie weakness, melena etc. Patient agrees on continued f/u in clinic as directed and as needed. Discussed use of NSAIDS and further discussion in clinic about Colonoscopy and EGD. F/u as directed. - General Info Date of Service: 08/08/19 Subjective Update: Patient much improved. She states she feels so much better and her headache has resolved. She feels ready to go home. Denies any further weakness or symptoms. Functional Status: Reports: Ambulating - Review of Systems General: Reports: No Symptoms HEENT: Reports: No Symptoms Pulmonary: Reports: No Symptoms Cardiovascular: Reports: No Symptoms Gastrointestinal: Reports: No Symptoms Genitourinary: Reports: No Symptoms Musculoskeletal: Reports: No Symptoms - Patient Data Vitals - Most Recent: Last Vital Signs Temp 36.3 C 08/08/19 08:00 Pulse 91 08/08/19 09:16 Resp 16 08/08/19 08:00 BP 142/64 H 08/08/19 09:16 Pulse Ox 95 08/08/19 08:00 Weight - Most Recent: 91.898 kg I&O - Last 24 hours: Intake & Output 08/07/19 08/08/19 08/08/19 22:59 06:59 14:59 Intake Total 600 300 Output Total 1000 400 Balance -400 -100 Lab Results - Last 24 hrs: Laboratory Results - last 24 hr 08/07/19 08/08/19 08/08/19 Range/Units 16:50 08:17 08:17 WBC 9.1 (4.0-11.0) K/uL RBC 3.99 (3.80-5.80) M/uL Hgb 11.4 L (11.5-16.5) g/dL Hct 33.9 L (37.0-47.0) % MCV 85 (76-96) fL MCH 28.6 (27.0-32.0) pg MCHC 33.6 (31.0-35.0) g/dL RDW 13.9 (11.0-16.0) % Plt Count 310 (150-500) K/uL MPV 9.9 (6.0-10.0) fL Neut % (Auto) 68.7 (45.0-70.0) % Lymph % (Auto) 21.4 (20.0-40.0) % Pine % (Auto) 8.8 (3.0-10.0) % Eos % (Auto) 1.0 (1.0-5.0) % Baso % (Auto) 0.1 (0.0-0.5) % Neut # (Auto) 6.28 (2.00-7.50) K/uL Lymph # (Auto) 1.95 (1.50-4.00) K/uL Pine # (Auto) 0.80 (0.20-0.80) K/uL Eos # (Auto) 0.09 (0.04-0.40) K/uL Baso # (Auto) 0.01 L (0.02-0.10) K/uL Sodium 142 (136-145) mmol/L Potassium 4.5 (3.5-5.1) mmol/L Chloride 110 H (98-107) mmol/L Carbon Dioxide 23.4 (21.0-32.0) mmol/L Anion Gap 13.1 (5.0-15.0) mmol/L BUN 41 H (8-26) mg/dL Creatinine 1.37 H D (0.55-1.02) mg/dL Est Cr Clr Drug Dosing 30.25 mL/min Estimated GFR (MDRD) 38 L (>60) MLS/MIN BUN/Creatinine Ratio 29.9 H (6-25) Glucose 151 H (74-100) mg/dL POC Glucose 165 H (74-110) mg/dL Calcium 8.7 (8.5-10.1) mg/dL 08/08/19 Range/Units 08:20 WBC (4.0-11.0) K/uL RBC (3.80-5.80) M/uL Hgb (11.5-16.5) g/dL Hct (37.0-47.0) % MCV (76-96) fL MCH (27.0-32.0) pg MCHC (31.0-35.0) g/dL RDW (11.0-16.0) % Plt Count (150-500) K/uL MPV (6.0-10.0) fL Neut % (Auto) (45.0-70.0) % Lymph % (Auto) (20.0-40.0) % Pine % (Auto) (3.0-10.0) % Eos % (Auto) (1.0-5.0) % Baso % (Auto) (0.0-0.5) % Neut # (Auto) (2.00-7.50) K/uL Lymph # (Auto) (1.50-4.00) K/uL Pine # (Auto) (0.20-0.80) K/uL Eos # (Auto) (0.04-0.40) K/uL Baso # (Auto) (0.02-0.10) K/uL Sodium (136-145) mmol/L Potassium (3.5-5.1) mmol/L Chloride (98-107) mmol/L Carbon Dioxide (21.0-32.0) mmol/L Anion Gap (5.0-15.0) mmol/L BUN (8-26) mg/dL Creatinine (0.55-1.02) mg/dL Est Cr Clr Drug Dosing mL/min Estimated GFR (MDRD) (>60) MLS/MIN BUN/Creatinine Ratio (6-25) Glucose (74-100) mg/dL POC Glucose 178 H (74-110) mg/dL Calcium (8.5-10.1) mg/dL Med Orders - Current: Current Medications Diltiazem HCl (Cardizem Cd) 180 mg PO DAILY [facility] Last Admin: 08/08/19 09:16 Dose: 180 mg Furosemide (Lasix) 40 mg PO DAILY PRN PRN Reason: Edema Losartan Potassium (Cozaar) 50 mg PO DAILY [facility] Last Admin: 08/08/19 09:16 Dose: 50 mg Metformin HCl (Glucophage) 500 mg PO TIDMEALS [facility] Last Admin: 08/08/19 09:20 Dose: 500 mg Multivitamins/Minerals (Thera M Plus) 1 tab PO DAILY [facility] Last Admin: 08/08/19 09:15 Dose: 1 tab Pantoprazole Sodium (Protonix Iv) 40 mg IVPUSH DAILY [facility] Last Admin: 08/08/19 09:17 Dose: 40 mg Pravastatin Sodium (Pravachol) 40 mg PO BEDTIME [facility] Last Admin: 08/07/19 21:00 Dose: 40 mg Sodium Chloride (Saline Flush) 10 ml FLUSH ASDIRECTED PRN PRN Reason: Keep Vein Open Discontinued Medications Acetaminophen (Tylenol Extra Strength) 1,000 mg PO ONETIME ONE Stop: 08/07/19 08:29 Last Admin: 08/07/19 08:30 Dose: 1,000 mg Diphenhydramine HCl (Benadryl) 50 mg PO ONETIME ONE Stop: 08/07/19 01:04 Last Admin: 08/07/19 01:18 Dose: 50 mg Diphenhydramine HCl (Benadryl) Confirm Administered Dose 50 mg .ROUTE .STK-MED ONE Stop: 08/07/19 22:22 Diphenhydramine HCl (Benadryl) Confirm Administered Dose 25 mg .ROUTE .STK-MED ONE Stop: 08/07/19 22:23 Last Admin: 08/07/19 22:42 Dose: 25 mg Pantoprazole Sodium 80 mg/ (Sodium Chloride) 100 mls @ 200 mls/hr IV .BOLUS ONE Stop: 08/04/19 19:45 Last Admin: 08/04/19 19:30 Dose: 200 mls/hr Sodium Chloride (Normal Saline) 1,000 mls @ 100 mls/hr IV ASDIRECTED [facility] Last Admin: 08/05/19 20:27 Dose: 100 mls/hr Sodium Chloride (Saline Flush) 10 ml FLUSH ASDIRECTED PRN PRN Reason: Keep Vein Open - Exam General: Reports: Alert, Oriented, Cooperative HEENT: Reports: Pupils Equal, Pupils Reactive, EOMI Neck: Reports: Supple Lungs: Reports: Clear to Auscultation, Normal Respiratory Effort Cardiovascular: Reports: Regular Rate, Regular Rhythm GI/Abdominal Exam: Normal Bowel Sounds Back Exam: Reports: Normal Inspection Extremities: Normal Inspection, Normal Range of Motion Skin: Reports: Warm, Dry, Intact
== END 2019-08-08 10:50 | disposition home or self-care (01) | DRG 811 ==
LOC: LB.ED 18:33 → LB.MS 20:20 → UNDOADMOB 20:25 → OBSVTOIN 08-05 08:50
PROVIDERS: ADMIT Family Medicine; ATTEND Family Medicine
PROC: 30233N1 Transfusion of Nonautologous Red Blood Cells into Peripheral Vein, Percutaneous Approach (ICD-10-PCS; principal; 2019-08-06)
DX: K92.2 Gastrointestinal hemorrhage, unspecified (principal); R53.1 Weakness; D62 Acute posthemorrhagic anemia; N28.9 Disorder of kidney and ureter, unspecified; K57.31 Diverticulosis of large intestine without perforation or abscess with bleeding; N17.9 Acute kidney failure, unspecified; R71.0 Precipitous drop in hematocrit; E11.9 Type 2 diabetes mellitus without complications; Z79.899 Other long term (current) drug therapy; G43.909 Migraine, unspecified, not intractable, without status migrainosus; I10 Essential (primary) hypertension; Z79.82 Long term (current) use of aspirin; Z90.710 Acquired absence of both cervix and uterus; Z96.659 Presence of unspecified artificial knee joint; Z96.619 Presence of unspecified artificial shoulder joint; Z79.84 Long term (current) use of oral hypoglycemic drugs; Z88.0 Allergy status to penicillin; Z91.040 Latex allergy status; Z88.8 Allergy status to other drugs, medicaments and biological substances
CPT/HCPCS: 36415; 36430; 74176; 80048; 80053; 82271; 82962; 83690; 85014; 85018; 85025; 85610; 85730; 86850; 86900; 86901; 86920; 86922; 96361; 96365; 96376; 99285-25; A9270-GY; C9113; G0378; J7030; P9016

== ENCOUNTER 2020-01-28 09:47 | Observation (INO) | payer MEDICARE, OTHER ==
[2020-01-28] MEDS ORDERED: Sodium Chloride 0.9% 1,000 ML IV ONE (09:58)
[2020-01-28] MEDS ORDERED: Ondansetron 4 MG/2 ML SDV IVPUSH PRN (10:05)
[2020-01-28] MEDS ORDERED: diphenhydrAMINE 50 MG/ML SDV IVPUSH ONE (10:09)
[2020-01-28] MEDS ORDERED: HYDROmorphone 2 MG/ML Syringe IVPUSH ONE (10:09)
[2020-01-28] MEDS ORDERED: HYDROmorphone 2 MG/ML SDV ONE ×2 (10:13→18:13)
[2020-01-28] MEDS ORDERED: diphenhydrAMINE 50 MG/ML SDV ONE (10:17)
[2020-01-28] MEDS ORDERED: Sodium Chloride 0.9% 1,000 ML IV SCH ×2 (11:05→13:05)
[2020-01-28] MEDS: Ondansetron 4 MG/2 ML SDV ONE ×2 (11:13→11:41)
[2020-01-28] MEDS ORDERED: Dexamethasone 4 MG/ML 5 ML MDV IVPUSH ONE (11:35)
[2020-01-28] MEDS ORDERED: Metoclopramide 10 MG/2 ML SDV IVPUSH ONE (11:35)
--- NOTE | 2020-01-28 11:44 | EDM.PDOC ---
ED HPI GENERAL MEDICAL PROBLEM - General Chief Complaint: Headache Stated Complaint: NO FEEL WELL Time Seen by Provider: 01/28/20 09:47 Source of Information: Reports: Patient, EMS, Family History Limitations: Reports: No Limitations - History of Present Illness INITIAL COMMENTS - FREE TEXT/NARRATIVE: Sera presents, initially via EMS, for "not feeling so well". She states that she was well until about 2300 last evening when she started getting the sensation of nausea. Over the next few hours, she had gradual onset of a typical migraine headache. She does endorse throbbing. She also has some photophobia. She went on to have some significant nausea associated with dry heaves. Prior to last evening, she has had no recent illness or fever. She denies any cough. She notes that this headache is very typical of what she gets in the past. Her does confirm that she has landed in the emergency room with these in the past. She has had no recent head trauma. She has had no neck spasm, rash, chest discomfort, diaphoresis, or significant GI/ symptoms aside from her nausea. She does feel quite thirsty. She did try a prescription barbiturate tablet at home around 5 AM. Due to little if any improvement in her symptoms, she contacted EMS to come in due to her uncontrolled headache. Treatments DISPLAY DIRECTOR: Reports: Other Medication(s) Other Treatments DISPLAY DIRECTOR: Fiorinal Headache Pain Score (Numeric/FACES): 7 - Related Data Allergies Allergy/AdvReac Type Severity Reaction Status Date / Time heparin Allergy Cannot Verified 08/04/19 19:13 Remember latex Allergy Cannot Verified 08/04/19 19:13 Remember morphine Allergy Vomiting Verified 08/04/19 18:54 Penicillins Allergy Anaphylactic Verified 08/04/19 19:13 Shock Home Meds: Home Meds Aspirin [Halfprin] 81 mg PO DAILY 11/20/15 [History] Cinnamon Bark [Cinnamon] 500 mg PO DAILY 11/20/15 [History] Diltiazem HCl [Tiazac] 180 mg PO DAILY 11/20/15 [History] Losartan [Cozaar] 50 mg PO DAILY 11/20/15 [History] Multivitamin with Minerals [Multiple Vitamin] 1 tab PO DAILY 11/20/15 [History] Pravastatin [Pravachol] 40 mg PO BEDTIME 11/20/15 [History] Pregabalin [Lyrica] 75 mg PO DAILY 11/20/15 [History] metFORMIN [Glucophage] 500 mg PO TID 11/20/15 [History] traMADol [Ultram] 50 mg PO BID 11/20/15 [History] Acetam/Butalbital/Caffeine/Cod [Fioricet/Codeine [id number] MG] 1 cap PO DAILY PRN 12/04/17 [History] Furosemide 40 mg PO DAILY PRN 12/04/17 [History] Past Medical History HEENT History: Reports: Impaired Vision Cardiovascular History: Reports: Hypertension Gastrointestinal History: Reports: Bowel Obstruction, Hemorrhoids [employer] History: Reports: Other (See Below), Other [employer] History: hysterectomy Neurological History: Reports: Migraines Endocrine/Metabolic History: Reports: Diabetes, Type II - Infectious Disease History Infectious Disease History: Reports: Chicken Pox - Past Surgical History GI Surgical History: Reports: Colonoscopy Musculoskeletal Surgical History: Reports: Knee Replacement, Shoulder Replacement, Shoulder Surgery Social & Family History - Family History Family Medical History: Noncontributory - Tobacco Use Smoking Status *Q: Unknown Ever Smoked Second Hand Smoke Exposure: No - Caffeine Use Caffeine Use: Reports: Soda ED ROS GENERAL - Review of Systems Review Of Systems: Comprehensive ROS is negative, except as noted in HPI. ED EXAM, GENERAL - Physical Exam Exam: See Below Exam Limited By: No Limitations General Appearance: Alert, WD/WN, No Apparent Distress Eye Exam: Bilateral Eye: EOMI, PERRL Nose: Normal Inspection Throat/Mouth: Other (Somewhat dry) Head: Atraumatic, Normocephalic Neck: Normal Inspection, Supple, Non-Tender, Full Range of Motion, Other (No nuchal rigidity) Respiratory/Chest: No Respiratory Distress, Lungs Clear, Normal Breath Sounds Cardiovascular: Regular Rate, Rhythm, No Gallop, No Murmur, No Rub GI/Abdominal: Normal Bowel Sounds, Soft, Non-Tender Back Exam: Normal Inspection, Full Range of Motion Extremities: Normal Inspection, Normal Range of Motion, Non-Tender, No Pedal Edema, Normal Capillary Refill Neurological: Alert, Oriented, CN II-XII Intact, Normal Cognition, No Motor/ Sensory Deficits Psychiatric: Normal Affect, Normal Mood Skin Exam: Warm, Dry, Intact, No Rash Lymphatic: No Adenopathy Course - Vital Signs Text/Narrative:: The patient arrived and we obtained report from EMS. This was confirmed with the patient. It seemed like things pretty well were mostly summarized after 5 AM when she began experiencing her typical migraine, albeit uncontrolled. It seems like her preceding symptoms of nausea were more related to this, although EMS report did seem to focus more on the initial vague symptoms. She has had no recent head trauma or any febrile illness to suggest infection with influenza or even coronavirus. Review of her chart shows that she has had cluster headaches in the past. She was provided with hydromorphone which gave her moderate relief but her feet became quite itchy. Initially her nausea was completely managed with Zofran, but then recurred. We decided to provide her with metoclopramide, as well as dexamethasone to prevent any rebound down the road. She was given a full liter bolus, and continued to appear somewhat volume depleted. Her neurologic examination remained unchanged, and EKG as well as labs did not seem to reveal any concern for other findings at all. Last Recorded V/S: Last Vital Signs Temp 99.9 F 01/29/20 11:43 Pulse 120 H 01/29/20 11:43 Resp 16 01/29/20 11:43 BP 192/104 H 01/29/20 11:43 Pulse Ox 98 01/29/20 11:43 - Orders/Labs/Meds Orders: Active Orders 24 hr Category Date Time Status Sodium Chloride 0.9% [Normal Saline] 1,000 ml Med 01/28/20 13:05 Active IV ASDIRECTED Medication Orders Acetaminophen (Tylenol) 325 mg PO Q6H [facility] Last Admin: 01/29/20 11:11 Dose: 325 mg Hydrocodone Bitart/Acetaminophen ([place] 325-5 Mg) 1 tab PO Q6H [facility] Last Admin: 01/29/20 11:10 Dose: 1 tab Azithromycin (Zithromax) 500 mg IV Q24H [facility] Fentanyl (Sublimaze) 50 mcg IVPUSH Q6H PRN PRN Reason: Pain Sodium Chloride (Normal Saline) 1,000 mls @ 500 mls/hr IV ASDIRECTED [facility] Last Admin: 01/28/20 11:05 Dose: 500 mls/hr Sodium Chloride (Normal Saline) 1,000 mls @ 200 mls/hr IV ASDIRECTED [facility] Last Admin: 01/28/20 13:10 Dose: 200 mls/hr Magnesium Hydroxide (Milk Of Magnesia) 30 ml PO BID PRN PRN Reason: Constipation Methocarbamol (Robaxin) 500 mg PO Q6H [facility] Methylprednisolone Sodium Succinate (Solu-Medrol) 125 mg IVPUSH Q6H [facility] Last Admin: 01/29/20 11:09 Dose: 125 mg Butalbital 50mg Aspirin 325mg Caffeine 40mg Codeine Phosphate 30mg 2 each PO Q6H PRN PRN Reason: MIGRAINE Labs: Laboratory Tests 01/28/20 01/28/20 01/28/20 Range/Units 10:15 10:15 10:15 WBC 8.7 (4.0-11.0) K/uL RBC 5.03 (3.80-5.80) M/uL Hgb 13.5 D (11.5-16.5) g/dL Hct 40.9 D (37.0-47.0) % MCV 81 (76-96) fL MCH 26.8 L (27.0-32.0) pg MCHC 33.0 (31.0-35.0) g/dL RDW 13.6 (11.0-16.0) % Plt Count 349 (150-500) K/uL MPV 9.8 (6.0-10.0) fL Neut % (Auto) 84.6 H (45.0-70.0) % Lymph % (Auto) 11.0 L (20.0-40.0) % [place] % (Auto) 3.8 (3.0-10.0) % Eos % (Auto) 0.1 L (1.0-5.0) % Baso % (Auto) 0.5 (0.0-0.5) % Neut # (Auto) 7.33 (2.00-7.50) K/uL Lymph # (Auto) 0.95 L (1.50-4.00) K/uL [place] # (Auto) 0.33 (0.20-0.80) K/uL Eos # (Auto) 0.01 L (0.04-0.40) K/uL Baso # (Auto) 0.04 (0.02-0.10) K/uL Sodium 139 (136-145) mmol/L Potassium 4.0 (3.5-5.1) mmol/L Chloride 98 (98-107) mmol/L Carbon Dioxide 26.3 (21.0-32.0) mmol/L Anion Gap 18.7 H (5.0-15.0) mmol/L BUN 18 (8-26) mg/dL Creatinine 1.24 H (0.55-1.02) mg/dL Est Cr Clr Drug Dosing TNP Estimated GFR (MDRD) 42 L (>60) MLS/MIN BUN/Creatinine Ratio 14.5 (6-25) Glucose 220 H D (74-100) mg/dL Lactic Acid 1.8 (0.4-2.0) mmol/L Calcium 8.9 (8.5-10.1) mg/dL Total Bilirubin 0.2 D (0.0-1.0) mg/dL AST 19 (15-37) U/L ALT 18 (12-78) U/L Alkaline Phosphatase 93 (46-116) U/L Troponin I < 0.017 (0.000-0.060) ng/mL C-Reactive Protein 0.9 (0.0-3.0) mg/L Total Protein 8.6 H (6.4-8.2) g/dL Albumin 3.7 (3.4-5.0) g/dL Globulin 4.9 H (2.2-4.2) g/dL Albumin/Globulin Ratio 0.8 (0.8-2.0) Amylase (25-115) U/L Urine Color Urine Appearance (CLEAR) Urine pH (5.0-8.0) Ur Specific [place] (1.003-1.030) Urine Protein (NEGATIVE) mg/dL Urine Glucose (UA) (NEGATIVE) mg/dL Urine Ketones (NEGATIVE) mg/dL Urine Occult Blood (NEGATIVE) Urine Nitrite (NEGATIVE) Urine Bilirubin (NEGATIVE) Urine Urobilinogen (0.2-1.0) E.U./dL Ur Leukocyte Esterase (NEGATIVE) Urine RBC /HPF Urine WBC /HPF Ur Squamous Epith Cells /HPF Urine Bacteria /HPF 01/28/20 01/28/20 Range/Units 10:15 12:25 WBC (4.0-11.0) K/uL RBC (3.80-5.80) M/uL Hgb (11.5-16.5) g/dL Hct (37.0-47.0) % MCV (76-96) fL MCH (27.0-32.0) pg MCHC (31.0-35.0) g/dL RDW (11.0-16.0) % Plt Count (150-500) K/uL MPV (6.0-10.0) fL Neut % (Auto) (45.0-70.0) % Lymph % (Auto) (20.0-40.0) % [place] % (Auto) (3.0-10.0) % Eos % (Auto) (1.0-5.0) % Baso % (Auto) (0.0-0.5) % Neut # (Auto) (2.00-7.50) K/uL Lymph # (Auto) (1.50-4.00) K/uL [place] # (Auto) (0.20-0.80) K/uL Eos # (Auto) (0.04-0.40) K/uL Baso # (Auto) (0.02-0.10) K/uL Sodium (136-145) mmol/L Potassium (3.5-5.1) mmol/L Chloride (98-107) mmol/L Carbon Dioxide (21.0-32.0) mmol/L Anion Gap (5.0-15.0) mmol/L BUN (8-26) mg/dL Creatinine (0.55-1.02) mg/dL Est Cr Clr Drug Dosing Estimated GFR (MDRD) (>60) MLS/MIN BUN/Creatinine Ratio (6-25) Glucose (74-100) mg/dL Lactic Acid (0.4-2.0) mmol/L Calcium (8.5-10.1) mg/dL Total Bilirubin (0.0-1.0) mg/dL AST (15-37) U/L ALT (12-78) U/L Alkaline Phosphatase (46-116) U/L Troponin I (0.000-0.060) ng/mL C-Reactive Protein (0.0-3.0) mg/L Total Protein (6.4-8.2) g/dL Albumin (3.4-5.0) g/dL Globulin (2.2-4.2) g/dL Albumin/Globulin Ratio (0.8-2.0) Amylase 67 D (25-115) U/L Urine Color Yellow Urine Appearance Clear (CLEAR) Urine pH 7.5 (5.0-8.0) Ur Specific [place] 1.025 (1.003-1.030) Urine Protein >=300 H (NEGATIVE) mg/dL Urine Glucose (UA) 100 H (NEGATIVE) mg/dL Urine Ketones Negative (NEGATIVE) mg/dL Urine Occult Blood Trace-lysed H (NEGATIVE) Urine Nitrite Negative (NEGATIVE) Urine Bilirubin Negative (NEGATIVE) Urine Urobilinogen 0.2 (0.2-1.0) E.U./dL Ur Leukocyte Esterase Negative (NEGATIVE) Urine RBC 0-5 H /HPF Urine WBC 5-10 H /HPF Ur Squamous Epith Cells Many /HPF Urine Bacteria Few /HPF Meds: Medications Generic Name Dose Route Start Last Admin Trade Name Freq PRN Reason Stop Dose Admin Acetaminophen 325 mg 01/29/20 10:45 01/29/20 11:11 Tylenol PO 325 mg Q6H JEFF Administration Hydrocodone Bitart/Acetaminophen 1 tab 01/29/20 10:45 01/29/20 11:10 [place] 325-5 Mg PO 1 tab Q6H JEFF Administration Azithromycin 500 mg 01/29/20 13:00 Zithromax IV Q24H JEFF Fentanyl 50 mcg 01/29/20 10:42 Sublimaze IVPUSH Q6H PRN Pain Sodium Chloride 1,000 mls @ 500 mls/hr 01/28/20 11:05 01/28/20 11:05 Normal Saline IV 500 mls/hr ASDIRECTED JEFF Administration Sodium Chloride 1,000 mls @ 200 mls/hr 01/28/20 13:05 01/28/20 13:10 Normal Saline IV 200 mls/hr ASDIRECTED JEFF Administration Magnesium Hydroxide 30 ml 01/28/20 17:18 Milk Of Magnesia PO BID PRN Constipation Methocarbamol 500 mg 01/29/20 11:30 Robaxin PO Q6H JEFF Methylprednisolone Sodium Succinate 125 mg 01/29/20 10:45 01/29/20 11:09 Solu-Medrol IVPUSH 125 mg Q6H JEFF Administration Butalbital 50mg 2 each 01/29/20 09:37 Aspirin 325mg PO Caffeine 40mg Q6H PRN Codeine Phosphate MIGRAINE 30mg Discontinued Medications Generic Name Dose Route Start Last Admin Trade Name Freq PRN Reason Stop Dose Admin Acetaminophen 650 mg 01/28/20 17:18 01/29/20 01:01 Tylenol PO 650 mg Q4H PRN Administration analgesia/fever Acetaminophen 650 mg 01/28/20 21:07 01/28/20 21:15 Tylenol RECTAL 01/28/20 21:08 650 mg NOW ONE Administration Azithromycin Confirm 01/29/20 12:10 Zithromax Administered 01/29/20 12:11 Dose 500 mg .ROUTE .STK-MED ONE Dexamethasone 10 mg 01/28/20 11:35 01/28/20 11:53 Dexamethasone IVPUSH 01/28/20 11:36 10 mg ONETIME ONE Administration Dexamethasone Confirm 01/28/20 11:50 01/28/20 12:10 Dexamethasone Administered 01/28/20 11:51 Not Given Dose 12 mg .ROUTE .STK-MED ONE Diphenhydramine HCl 50 mg 01/28/20 10:09 01/28/20 11:12 Benadryl IVPUSH 01/28/20 10:10 50 mg ONETIME ONE Administration Diphenhydramine HCl Confirm 01/28/20 10:17 01/28/20 11:42 Benadryl Administered 01/28/20 10:18 Not Given Dose 50 mg .ROUTE .STK-MED ONE Diphenhydramine HCl 25 mg 01/28/20 17:32 01/28/20 18:00 Benadryl IVPUSH 25 mg Q6H PRN Administration Agitation Fentanyl 25 mcg 01/28/20 10:39 01/28/20 17:15 Sublimaze IVPUSH 25 mcg Q10M PRN Administration Pain Fentanyl Confirm 01/28/20 12:04 01/28/20 12:10 Sublimaze Administered 01/28/20 12:05 Not Given Dose 100 mcg .ROUTE .STK-MED ONE Fentanyl Confirm 01/28/20 16:37 01/28/20 18:04 Sublimaze Administered 01/28/20 16:38 Not Given Dose 100 mcg .ROUTE .STK-MED ONE Hydromorphone HCl 0.5 mg 01/28/20 10:09 01/28/20 10:07 Dilaudid IVPUSH 01/28/20 10:10 0.5 mg ONETIME ONE Administration Hydromorphone HCl Confirm 01/28/20 10:13 01/28/20 11:42 Dilaudid Administered 01/28/20 10:14 Not Given Dose 2 mg .ROUTE .STK-MED ONE Hydromorphone HCl 0 mg 01/28/20 17:31 01/29/20 05:06 Dilaudid IVPUSH 1 mg Q2H PRN Administration Pain Hydromorphone HCl Confirm 01/28/20 18:13 01/28/20 18:24 Dilaudid Administered 01/28/20 18:14 Not Given Dose 2 mg .ROUTE .STK-MED ONE Sodium Chloride 1,000 mls @ 999 mls/hr 01/28/20 09:58 01/28/20 10:05 Normal Saline IV 01/28/20 10:58 999 mls/hr .BOLUS ONE Administration Prochlorperazine Edisylate 10 52 mls @ 150 mls/hr 01/28/20 17:33 01/28/20 18: 00 mg/ Sodium Chloride IV 150 mls/hr Q6H PRN Administration Nausea/Vomiting Potassium Chloride/Dextrose/Sod Cl 1,000 mls @ 100 mls/hr 01/28/20 17:45 18:43 D5 1/2 Ns W/ 20 Meq/L Kcl IV 100 mls/hr ASDIRECTED JEFF Administration Indomethacin 50 mg 01/28/20 17:34 Indocin PO 01/28/20 17:35 ONETIME ONE Metoclopramide HCl 10 mg 01/28/20 11:35 01/28/20 11:40 Reglan IVPUSH 01/28/20 11:36 10 mg ONETIME ONE Administration Metoclopramide HCl Confirm 01/28/20 11:45 01/28/20 11:41 Reglan Administered 01/28/20 11:46 Not Given Dose 10 mg .ROUTE .STK-MED ONE Ondansetron HCl 4 mg 01/28/20 10:05 01/28/20 10:10 Zofran IVPUSH 4 mg Q4H PRN Administration Nausea/Vomiting Ondansetron HCl Confirm 01/28/20 10:17 01/28/20 11:41 Zofran Administered 01/28/20 10:18 Not Given Dose 4 mg .ROUTE .STK-MED ONE Sumatriptan Succinate 0 mg 01/28/20 17:28 01/28/20 20:59 Imitrex SUBCUT 01/28/20 17:29 6 mg ONETIME ONE Administration Sumatriptan Succinate Confirm 01/28/20 20:55 01/29/20 08:52 Imitrex Administered 01/28/20 20:56 Not Given Dose 6 mg .ROUTE .STK-MED ONE Tizanidine HCl 2 mg 01/29/20 10:45 01/29/20 12:09 Tizanidine PO Not Given Q6H JEFF Departure - Departure Time of Disposition: 16:30 Disposition: Home, Self-Care 01 Condition: Fair Clinical Impression: Headache Qualifiers: Headache type: other headache syndrome Qualified Code(s): G44.89 - Other headache syndrome - Discharge Information Sepsis Event Note - Evaluation Sepsis Screening Result: No Definite Risk - Focused Exam Date Exam was Performed: 01/29/20 Time Exam was Performed: 13:05 - My Orders Last 24 Hours: My Active Orders 01/28/20 13:05 Sodium Chloride 0.9% [Normal Saline] 1,000 ml IV ASDIRECTED - Assessment/Plan Last 24 Hours: My Active Orders 01/28/20 13:05 Sodium Chloride 0.9% [Normal Saline] 1,000 ml IV ASDIRECTED Plan: Discussed treatment options with Sera, our Pharm.D., and my nursing staff. Her had called back to check on her, and unfortunately when she woke up from her nap, she described re-onset of a moderate to severe headache. She is wondering if she needs her Fiorinal. I explained that certainly this could be a medication rebound headache or overuse syndrome. She does have cluster headache listed in her diagnosis list, and therefore was explained we could offer a trial on high flow oxygen. If this bothers her tonight, we could certainly discontinue this. Plan to follow her neurologic examination, and obtain a head CT noncontrasted. She was noted to tolerate hydromorphone fairly well except for some itching of her toes. She was switched to fentanyl which seemed to allow her to sleep, but not fully eradicate her pain. Dihydroergotamine is apparently not available. I cannot see where she has been trialed on Imitrex. She was a bit hypertensive upon arrival, but her pressures have trended down. Her pulse remains normal. Her physical examination continues to be remarkable for a nonfocal neurologic examination without nuchal signs or Kernig signs at all. Her coordination appears excellent, and her strength is preserved and symmetric. Her nausea returned, and she describes the usual characteristic throbbing of her headache. We decided at this point, we would provide her with scheduled antiemetics and lower dose antihistamine in hopes that she would get a good nights rest with intermittent bolusing of hydromorphone. Plan to recheck her labs in the morning. We could consider intranasal lidocaine, and occipital block if this becomes more of a tender point , as well as possibly even a trial on very low-dose ketamine. Her was updated on her condition. Orders reviewed with nursing staff who will err on the side of providing her with IV analgesia given the severity of her symptoms and ongoing nausea.
[2020-01-28] MEDS ORDERED: Metoclopramide 10 MG/2 ML SDV ONE (11:45)
[2020-01-28] MEDS ORDERED: Dexamethasone 4 MG/ML SDV ONE (11:50)
[2020-01-28] MEDS: fentaNYL 250 MCG/5 ML SDV IVPUSH PRN ×6 (11:58→17:15)
[2020-01-28] MEDS ORDERED: fentaNYL 100 MCG/2 ML SDV ONE (12:04)
[2020-01-28] MEDS: fentaNYL 100 MCG/2 ML SDV ONE ×4 (16:45→18:04)
[2020-01-28] MEDS ORDERED: Acetaminophen 325 MG Tab PO PRN (17:18)
[2020-01-28] MEDS ORDERED: Magnesium Hydroxide 400 MG/5 ML Susp 30 ML Cup PO PRN (17:18)
[2020-01-28] MEDS ORDERED: SUMAtriptan 6 MG/0.5 ML SDV SUBCUT ONE (17:28)
[2020-01-28] MEDS ORDERED: Acetaminophen/Butalbital/Caffeine 325-50-40 MG Tab PO PRN (17:30)
[2020-01-28] MEDS ORDERED: Prochlorperazine 10 MG in Sodium Chloride 0.9% 50 ML IV PRN (17:33)
[2020-01-28] MEDS ORDERED: Indomethacin 50 MG Cap PO ONE (17:34)
[2020-01-28] MEDS ORDERED: D5 1/2 NS w/ 20 mEq/L KCl 1,000 ML IV SCH (17:45)
[2020-01-28] MEDS: diphenhydrAMINE 50 MG/ML SDV IVPUSH PRN (18:00)
[2020-01-28] MEDS: HYDROmorphone 2 MG/ML Syringe IVPUSH PRN ×2 (18:49→22:13)
[2020-01-28] MEDS ORDERED: SUMAtriptan 6 MG/0.5 ML SDV ONE (20:55)
[2020-01-28] MEDS ORDERED: Acetaminophen 650 MG Supp RECTAL ONE (21:07)
[2020-01-29] MEDS: HYDROmorphone 2 MG/ML Syringe IVPUSH PRN ×2 (01:00→05:06)
--- NOTE | 2020-01-29 08:35 | CT ---
Date of Service: 01/29/20 Clinical Data: refractory migraine UNENHANCED BRAIN CT: Multislice axial acquisition was performed. Comparison is made to a prior exam dated 04/02/18. There is mild atrophy. There are periventricular lucencies bilaterally consistent with small vessel ischemic change. No masses or mass effect. No intracranial hemorrhage. No evidence of acute or subacute infarct. No osseous abnormalities. IMPRESSION: No acute intracranial abnormalities. [id number] [facility]
[2020-01-29] MEDS ORDERED: ASPIRIN 325 MG PO PRN (09:37)
[2020-01-29] MEDS ORDERED: BUTALBITAL PO PRN (09:37)
[2020-01-29] MEDS ORDERED: CODEINE PHOSPHATE PO PRN (09:37)
[2020-01-29] MEDS ORDERED: CAFFEINE PO PRN (09:37)
[2020-01-29] MEDS ORDERED: fentaNYL 100 MCG/2 ML SDV IVPUSH PRN (10:42)
[2020-01-29] MEDS ORDERED: tiZANidine 2 MG Cap PO SCH (10:45)
[2020-01-29] MEDS ORDERED: Acetaminophen/HYDROcodone 325-5 MG Tab PO SCH (10:45)
[2020-01-29] MEDS ORDERED: Acetaminophen 325 MG Tab PO SCH (10:45)
[2020-01-29] MEDS ORDERED: methylPREDNISolone Sodium Succinate 125 MG/2 ML SDV IVPUSH SCH (10:45)
--- NOTE | 2020-01-29 11:29 | CR ---
DATE OF SERVICE: 01/29/2020 CLINICAL DATA: elevated fever PA and Lateral chest: Comparison made to a prior exam dated 01/17/2013. The patient has taken a poor inspiration. The heart size is normal. There is prominence of the proximal pulmonary suggesting the possibility of pulmonary hypertension. There mild interstitial changes throughout both lungs. There is a poorly defined ground glass opacity in the right upper lobe suspicious for pneumonia/ pneumonitis. Consider viral pneumonia. Lungs otherwise clear. No areas of consolidation. No pneumothorax. No pleural effusions. Dictated and Authenticated by: Caesar Culp MD 01/29/2020 11:22 AM VÍCTOR
[2020-01-29] MEDS ORDERED: Methocarbamol 500 MG Tab PO SCH (11:30)
[2020-01-29] MEDS ORDERED: Azithromycin 500 MG Vial ONE (12:10)
[2020-01-29] MEDS ORDERED: Azithromycin 500 MG AdvVial IV SCH (13:00)
--- NOTE | 2020-01-29 13:16 | PCM.DCSUM1 ---
Discharge Summary - Hospital Course Brief History: Sera presented with a severe migraine refractory to her usual [place] at home via EMS. She underwent relatively unremarkable evaluation in the emergency room. Her neurologic examination was reassuring, and she appeared completely nontoxic. She had no symptoms to suggest significant HR GENERALIST infection, namely any nuchal rigidity. She has had intolerance to opioids in the past, and was trialed on hydromorphone which led to moderate relief but some itching mainly of her feet. She was switched to fentanyl and slept on and off throughout the afternoon. She was not ready to resume eating due to her ongoing nausea and otherwise we elected to observe her overnight. On the ear flap binder, she received several doses of hydromorphone, and had a relative oversedation from opioids. After rounds, additional studies were requested, and she was noted to gradually improved throughout the morning. Around noon time, she was sitting up in the chair and had no complaints of headache or nausea. She still felt some malaise, and was not ready to go home. Her daughter called, and expressed significant frustration to her RN. She had requested that her mother be sent to a higher level of care. I did call and speak with Santo at length after Sera gave me permission, and listen to her concerns carefully. I certainly agree that it would not hurt to send her for a second opinion as [place] would have some pharmacologic agents that we do not have as well as potential for MRI, etc. I spoke with the hospitalist Dr. Mckenzie at length, including the possible pneumonitis on her chest x-ray. Her daughter wanted copies of all of her medical records, and nursing staff assisted with getting the appropriate release from medical records. I did apologize to her given her main concern that her mother was provided with too much pain medicine overnight and seemed to be overly groggy in the morning. 1 way or another, I tried to provide empathy to her situation. Risks and benefits of transfer were discussed in detail with Sera and her daughter, as well as other considerations given potential visitation issues from the current coronavirus epidemic. She was otherwise discharged in good condition via basic EMS to [facility] in [place]. - Discharge Data Discharge Date: 01/29/20 Discharge Disposition: DC/Tfer to Acute Hospital 02 Condition: Fair - Referral to Home Health Primary Care Physician: PCP None - Discharge Plan Home Medications: Home Meds Aspirin [Halfprin] 81 mg PO DAILY 11/20/15 [History] Cinnamon Bark [Cinnamon] 500 mg PO DAILY 11/20/15 [History] Diltiazem HCl [Tiazac] 180 mg PO DAILY 11/20/15 [History] Losartan [Cozaar] 50 mg PO DAILY 11/20/15 [History] Multivitamin with Minerals [Multiple Vitamin] 1 tab PO DAILY 11/20/15 [History] Pravastatin [Pravachol] 40 mg PO BEDTIME 11/20/15 [History] Pregabalin [Lyrica] 75 mg PO DAILY 11/20/15 [History] metFORMIN [Glucophage] 500 mg PO TID 11/20/15 [History] traMADol [Ultram] 50 mg PO BID 11/20/15 [History] Acetam/Butalbital/Caffeine/Cod [Fioricet/Codeine 363-15-61-30 MG] 1 cap PO DAILY PRN 12/04/17 [History] Furosemide 40 mg PO DAILY PRN 12/04/17 [History] Forms: ED Department Discharge Referrals: PCP,None [Primary Care Provider] - - Discharge Summary/Plan Comment DC Time >30 min.: No - Patient Data Vitals - Most Recent: Last Vital Signs Temp 99.9 F 01/29/20 11:43 Pulse 120 H 01/29/20 11:43 Resp 16 01/29/20 11:43 BP 192/104 H 01/29/20 11:43 Pulse Ox 98 01/29/20 11:43 Weight - Most Recent: 203 lb 4 oz Lab Results - Last 24 hrs: Laboratory Results - last 24 hr 01/29/20 01/29/20 01/29/20 Range/Units 07:20 07:20 07:20 WBC 11.7 H D (4.0-11.0) K/uL RBC 4.65 (3.80-5.80) M/uL Hgb 12.6 (11.5-16.5) g/dL Hct 38.2 (37.0-47.0) % MCV 82 (76-96) fL MCH 27.1 (27.0-32.0) pg MCHC 33.0 (31.0-35.0) g/dL RDW 13.8 (11.0-16.0) % Plt Count 376 (150-500) K/uL MPV 10.0 (6.0-10.0) fL Neut % (Auto) 82.1 H (45.0-70.0) % Lymph % (Auto) 9.3 L (20.0-40.0) % Mower % (Auto) 8.2 (3.0-10.0) % Eos % (Auto) 0.0 L (1.0-5.0) % Baso % (Auto) 0.4 (0.0-0.5) % Neut # (Auto) 9.57 H (2.00-7.50) K/uL Lymph # (Auto) 1.08 L (1.50-4.00) K/uL Mower # (Auto) 0.95 H (0.20-0.80) K/uL Eos # (Auto) 0.00 L (0.04-0.40) K/uL Baso # (Auto) 0.05 (0.02-0.10) K/uL ESR 28 (0-30) mm/hr Sodium 137 (136-145) mmol/L Potassium 4.6 (3.5-5.1) mmol/L Chloride 100 (98-107) mmol/L Carbon Dioxide 27.4 (21.0-32.0) mmol/L Anion Gap 14.2 (5.0-15.0) mmol/L BUN 19 (8-26) mg/dL Creatinine 1.38 H (0.55-1.02) mg/dL Est Cr Clr Drug Dosing 29.59 mL/min Estimated GFR (MDRD) 37 L (>60) MLS/MIN BUN/Creatinine Ratio 13.8 (6-25) Glucose 246 H (74-100) mg/dL Lactic Acid (0.4-2.0) mmol/L Calcium 8.4 L (8.5-10.1) mg/dL Magnesium (1.8-2.4) mg/dL C-Reactive Protein (0.0-3.0) mg/L Amylase (25-115) U/L TSH, Ultra Sensitive (0.358-3.740) uIU/mL 01/29/20 01/29/20 01/29/20 Range/Units 07:20 07:20 07:20 WBC (4.0-11.0) K/uL RBC (3.80-5.80) M/uL Hgb (11.5-16.5) g/dL Hct (37.0-47.0) % MCV (76-96) fL MCH (27.0-32.0) pg MCHC (31.0-35.0) g/dL RDW (11.0-16.0) % Plt Count (150-500) K/uL MPV (6.0-10.0) fL Neut % (Auto) (45.0-70.0) % Lymph % (Auto) (20.0-40.0) % Mower % (Auto) (3.0-10.0) % Eos % (Auto) (1.0-5.0) % Baso % (Auto) (0.0-0.5) % Neut # (Auto) (2.00-7.50) K/uL Lymph # (Auto) (1.50-4.00) K/uL Mower # (Auto) (0.20-0.80) K/uL Eos # (Auto) (0.04-0.40) K/uL Baso # (Auto) (0.02-0.10) K/uL ESR (0-30) mm/hr Sodium (136-145) mmol/L Potassium (3.5-5.1) mmol/L Chloride (98-107) mmol/L Carbon Dioxide (21.0-32.0) mmol/L Anion Gap (5.0-15.0) mmol/L BUN (8-26) mg/dL Creatinine (0.55-1.02) mg/dL Est Cr Clr Drug Dosing mL/min Estimated GFR (MDRD) (>60) MLS/MIN BUN/Creatinine Ratio (6-25) Glucose (74-100) mg/dL Lactic Acid (0.4-2.0) mmol/L Calcium (8.5-10.1) mg/dL Magnesium 1.3 L (1.8-2.4) mg/dL C-Reactive Protein 0.7 (0.0-3.0) mg/L Amylase 74 (25-115) U/L TSH, Ultra Sensitive 0.873 D (0.358-3.740) uIU/mL 01/29/20 Range/Units 11:20 WBC (4.0-11.0) K/uL RBC (3.80-5.80) M/uL Hgb (11.5-16.5) g/dL Hct (37.0-47.0) % MCV (76-96) fL MCH (27.0-32.0) pg MCHC (31.0-35.0) g/dL RDW (11.0-16.0) % Plt Count (150-500) K/uL MPV (6.0-10.0) fL Neut % (Auto) (45.0-70.0) % Lymph % (Auto) (20.0-40.0) % Mower % (Auto) (3.0-10.0) % Eos % (Auto) (1.0-5.0) % Baso % (Auto) (0.0-0.5) % Neut # (Auto) (2.00-7.50) K/uL Lymph # (Auto) (1.50-4.00) K/uL Mower # (Auto) (0.20-0.80) K/uL Eos # (Auto) (0.04-0.40) K/uL Baso # (Auto) (0.02-0.10) K/uL ESR (0-30) mm/hr Sodium (136-145) mmol/L Potassium (3.5-5.1) mmol/L Chloride (98-107) mmol/L Carbon Dioxide (21.0-32.0) mmol/L Anion Gap (5.0-15.0) mmol/L BUN (8-26) mg/dL Creatinine (0.55-1.02) mg/dL Est Cr Clr Drug Dosing mL/min Estimated GFR (MDRD) (>60) MLS/MIN BUN/Creatinine Ratio (6-25) Glucose (74-100) mg/dL Lactic Acid 1.9 (0.4-2.0) mmol/L Calcium (8.5-10.1) mg/dL Magnesium (1.8-2.4) mg/dL C-Reactive Protein (0.0-3.0) mg/L Amylase (25-115) U/L TSH, Ultra Sensitive (0.358-3.740) uIU/mL MELISSA Results - Last 24 hrs: Microbiology 01/29/20 07:20 Influenza Type A Antigen Screen - Final Nasal, Unspecified NEGATIVE INFLUENZA A VIRUS AG REFERENCE RANGE: NEGATIVE Influenza Type B Antigen Screen - Final NEGATIVE INFLUENZA B VIRUS AG REFERENCE RANGE: NEGATIVE Med Orders - Current: Current Medications Acetaminophen (Tylenol) 325 mg PO Q6H [facility] Last Admin: 01/29/20 11:11 Dose: 325 mg Hydrocodone Bitart/Acetaminophen ([place] 325-5 Mg) 1 tab PO Q6H [facility] Last Admin: 01/29/20 11:10 Dose: 1 tab Azithromycin (Zithromax) 500 mg IV Q24H [facility] Fentanyl (Sublimaze) 50 mcg IVPUSH Q6H PRN PRN Reason: Pain Sodium Chloride (Normal Saline) 1,000 mls @ 500 mls/hr IV ASDIRECTED [facility] Last Admin: 01/28/20 11:05 Dose: 500 mls/hr Sodium Chloride (Normal Saline) 1,000 mls @ 200 mls/hr IV ASDIRECTED [facility] Last Admin: 01/28/20 13:10 Dose: 200 mls/hr Magnesium Hydroxide (Milk Of Magnesia) 30 ml PO BID PRN PRN Reason: Constipation Methocarbamol (Robaxin) 500 mg PO Q6H [facility] Methylprednisolone Sodium Succinate (Solu-Medrol) 125 mg IVPUSH Q6H [facility] Last Admin: 01/29/20 11:09 Dose: 125 mg Butalbital 50mg Aspirin 325mg Caffeine 40mg Codeine Phosphate 30mg 2 each PO Q6H PRN PRN Reason: MIGRAINE Discontinued Medications Acetaminophen (Tylenol) 650 mg PO Q4H PRN PRN Reason: analgesia/fever Last Admin: 01/29/20 01:01 Dose: 650 mg Acetaminophen (Tylenol) 650 mg RECTAL NOW ONE Stop: 01/28/20 21:08 Last Admin: 01/28/20 21:15 Dose: 650 mg Azithromycin (Zithromax) Confirm Administered Dose 500 mg .ROUTE .STK-MED ONE Stop: 01/29/20 12:11 Dexamethasone (Dexamethasone) 10 mg IVPUSH ONETIME ONE Stop: 01/28/20 11:36 Last Admin: 01/28/20 11:53 Dose: 10 mg Dexamethasone (Dexamethasone) Confirm Administered Dose 12 mg .ROUTE .STK-MED ONE Stop: 01/28/20 11:51 Last Admin: 01/28/20 12:10 Dose: Not Given Diphenhydramine HCl (Benadryl) 50 mg IVPUSH ONETIME ONE Stop: 01/28/20 10:10 Last Admin: 01/28/20 11:12 Dose: 50 mg Diphenhydramine HCl (Benadryl) Confirm Administered Dose 50 mg .ROUTE .STK-MED ONE Stop: 01/28/20 10:18 Last Admin: 01/28/20 11:42 Dose: Not Given Diphenhydramine HCl (Benadryl) 25 mg IVPUSH Q6H PRN PRN Reason: Agitation Last Admin: 01/28/20 18:00 Dose: 25 mg Fentanyl (Sublimaze) 25 mcg IVPUSH Q10M PRN PRN Reason: Pain Last Admin: 01/28/20 17:15 Dose: 25 mcg Fentanyl (Sublimaze) Confirm Administered Dose 100 mcg .ROUTE .STK-MED ONE Stop: 01/28/20 12:05 Last Admin: 01/28/20 12:10 Dose: Not Given Fentanyl (Sublimaze) Confirm Administered Dose 100 mcg .ROUTE .STK-MED ONE Stop: 01/28/20 16:38 Last Admin: 01/28/20 18:04 Dose: Not Given Hydromorphone HCl (Dilaudid) 0.5 mg IVPUSH ONETIME ONE Stop: 01/28/20 10:10 Last Admin: 01/28/20 10:07 Dose: 0.5 mg Hydromorphone HCl (Dilaudid) Confirm Administered Dose 2 mg .ROUTE .STK-MED ONE Stop: 01/28/20 10:14 Last Admin: 01/28/20 11:42 Dose: Not Given Hydromorphone HCl (Dilaudid) 0 mg IVPUSH Q2H PRN PRN Reason: Pain Last Admin: 01/29/20 05:06 Dose: 1 mg Hydromorphone HCl (Dilaudid) Confirm Administered Dose 2 mg .ROUTE .STK-MED ONE Stop: 01/28/20 18:14 Last Admin: 01/28/20 18:24 Dose: Not Given Sodium Chloride (Normal Saline) 1,000 mls @ 999 mls/hr IV .BOLUS ONE Stop: 01/28/20 10:58 Last Admin: 01/28/20 10:05 Dose: 999 mls/hr Prochlorperazine Edisylate 10 (mg/ Sodium Chloride) 52 mls @ 150 mls/hr IV Q6H PRN PRN Reason: Nausea/Vomiting Last Admin: 01/28/20 18:00 Dose: 150 mls/hr Potassium Chloride/Dextrose/Sod Cl (D5 1/2 Ns W/ 20 Meq/L Kcl) 1,000 mls @ 100 mls/hr IV ASDIRECTED [facility] Last Admin: 01/28/20 18:43 Dose: 100 mls/hr Indomethacin (Indocin) 50 mg PO ONETIME ONE Stop: 01/28/20 17:35 Metoclopramide HCl (Reglan) 10 mg IVPUSH ONETIME ONE Stop: 01/28/20 11:36 Last Admin: 01/28/20 11:40 Dose: 10 mg Metoclopramide HCl (Reglan) Confirm Administered Dose 10 mg .ROUTE .STK-MED ONE Stop: 01/28/20 11:46 Last Admin: 01/28/20 11:41 Dose: Not Given Ondansetron HCl (Zofran) 4 mg IVPUSH Q4H PRN PRN Reason: Nausea/Vomiting Last Admin: 01/28/20 10:10 Dose: 4 mg Ondansetron HCl (Zofran) Confirm Administered Dose 4 mg .ROUTE .STK-MED ONE Stop: 01/28/20 10:18 Last Admin: 01/28/20 11:41 Dose: Not Given Sumatriptan Succinate (Imitrex) 0 mg SUBCUT ONETIME ONE Stop: 01/28/20 17:29 Last Admin: 01/28/20 20:59 Dose: 6 mg Sumatriptan Succinate (Imitrex) Confirm Administered Dose 6 mg .ROUTE .STK-MED ONE Stop: 01/28/20 20:56 Last Admin: 01/29/20 08:52 Dose: Not Given Tizanidine HCl (Tizanidine) 2 mg PO Q6H [facility] Last Admin: 01/29/20 12:09 Dose: Not Given
[2020-01-29 13:25] VITALS: BP 171/77; PULSE 118
[2020-01-29] MEDS ORDERED: Azithromycin 500 MG in Sodium Chloride 0.9% 250 ML IV SCH (13:41)
[2020-01-30] MEDS ORDERED: Azithromycin 500 MG in Sodium Chloride 0.9% 250 ML IV SCH (13:00)
== END 2020-01-29 14:00 ==
LOC: LB.ED 09:47 → LB.MS 17:18
PROVIDERS: ADMIT Family Medicine; ATTEND Family Medicine
DX: G44.009 Cluster headache syndrome, unspecified, not intractable (principal); I10 Essential (primary) hypertension; E11.9 Type 2 diabetes mellitus without complications; Z88.0 Allergy status to penicillin; Z88.5 Allergy status to narcotic agent; Z91.040 Latex allergy status; Z79.82 Long term (current) use of aspirin; Z79.84 Long term (current) use of oral hypoglycemic drugs; Z88.8 Allergy status to other drugs, medicaments and biological substances
CPT/HCPCS: 36415; 70450; 71046; 80048; 80053; 81001; 82150; 83605; 83735; 84145; 84443; 84484; 85025; 85651; 86140; 87040; 87205; 87449; 87804; 87804-59; 93005; 96361; 96374; 96375; 96376; 99217; 99218; 99285-25; A0425; A0429; A9270-GY; J0456; J0780; J1100; J1170; J1200; J2405; J2765; J2930; J3010; J3030; J3480; J7030; J7050

== ENCOUNTER 2021-04-28 18:29 | Emergency (ER) | payer MEDICARE ==
[2021-04-28 18:37] VITALS: BP 132/72; PULSE 79
[2021-04-28] MEDS ORDERED: Acetaminophen/HYDROcodone 325-5 MG Tab ONE (19:00)
--- NOTE | 2021-04-28 19:19 | EDM.PDOC ---
ED HPI GENERAL MEDICAL PROBLEM - General Chief Complaint: Lower Extremity Injury/Pain Stated Complaint: knee pain Time Seen by Provider: 04/28/21 18:30 - History of Present Illness INITIAL COMMENTS - FREE TEXT/NARRATIVE: Pt fell at home landing on carpet. She injured her Rt knee and lower leg. She has been able to bear weight with pain. No other injuries. Onset: Sudden Location: Reports: Lower Extremity, Right - Related Data Allergies Allergy/AdvReac Type Severity Reaction Status Date / Time heparin Allergy Cannot Verified 04/28/21 18:30 Remember latex Allergy Cannot Verified 04/28/21 18:30 Remember morphine Allergy Vomiting Verified 04/28/21 18:30 Penicillins Allergy Anaphylactic Verified 04/28/21 18:30 Shock Home Meds: Home Meds Aspirin [Halfprin] 81 mg PO DAILY 11/20/15 [History] Cinnamon Bark [Cinnamon] 500 mg PO DAILY 11/20/15 [History] Losartan [Cozaar] 50 mg PO DAILY 11/20/15 [History] Multivitamin with Minerals [Multiple Vitamin] 1 tab PO DAILY 11/20/15 [History] Pravastatin [Pravachol] 40 mg PO BEDTIME 11/20/15 [History] Pregabalin [Lyrica] 75 mg PO DAILY 11/20/15 [History] dilTIAZem HCL [Tiazac] 180 mg PO DAILY 11/20/15 [History] metFORMIN [Glucophage] 500 mg PO TID 11/20/15 [History] traMADol [Ultram] 50 mg PO BID 11/20/15 [History] Acetam/Butalbital/Caffeine/Cod [Fioricet/Codeine 644-78-70-30 MG] 1 cap PO DAILY PRN 12/04/17 [History] Furosemide 40 mg PO DAILY PRN 12/04/17 [History] Past Medical History HEENT History: Reports: Impaired Vision Cardiovascular History: Reports: Hypertension Gastrointestinal History: Reports: Bowel Obstruction, Hemorrhoids 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), 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 Neurological History: Reports: Migraines Endocrine/Metabolic History: Reports: Diabetes, Type II - Infectious Disease History Infectious Disease History: Reports: Chicken Pox - Past Surgical History GI Surgical History: Reports: Colonoscopy Musculoskeletal Surgical History: Reports: Knee Replacement, Shoulder Replacement, Shoulder Surgery Social & Family History - Family History Family Medical History: No Pertinent Family History - Caffeine Use Caffeine Use: Reports: Soda - Recreational Drug Use Recreational Drug Use: No Review of Systems - Review of Systems Review Of Systems: Comprehensive ROS is negative, except as noted in HPI. Musculoskeletal: Reports: Other (Rt knee and lower leg pain after falling.) ED EXAM, GENERAL - Physical Exam Exam: See Below Exam Limited By: No Limitations General Appearance: Alert, WD/WN, No Apparent Distress Ears: Normal External Exam, Normal Canal, Hearing Grossly Normal, Normal TMs Ear Exam: Bilateral Ear: Auricle Normal, Canal Normal, TM normal Nose: Normal Inspection, Normal Mucosa, No Blood Throat/Mouth: Normal Inspection, Normal Lips, Normal Teeth, Normal Gums, Normal Oropharynx, Normal Voice, No Airway Compromise Head: Atraumatic, Normocephalic Neck: Normal Inspection, Supple, Non-Tender, Full Range of Motion Respiratory/Chest: No Respiratory Distress, Lungs Clear, Normal Breath Sounds, No Accessory Muscle Use, Chest Non-Tender Cardiovascular: Normal Peripheral Pulses, Regular Rate, Rhythm, No Edema, No Gallop, No JVD, No Murmur, No Rub GI/Abdominal: Normal Bowel Sounds, Soft, Non-Tender, No Organomegaly, No Distention, No Abnormal Bruit, No Mass (Female) Exam: Normal External Exam, Normal Speculum Exam, Normal Bimanual Exam Rectal (Female) Exam: Normal Exam, Normal Rectal Tone Back Exam: Normal Inspection, Full Range of Motion, NT Extremities: Normal Inspection, Normal Range of Motion, Non-Tender, No Pedal Edema, Normal Capillary Refill, Other (Examining the Rt knee reveals moderate swelling of the knee and proximal lower leg. Skin is intact. There is a well healed scar on the anterior aspect due to previous partial knee replacement.) Neurological: Alert, Oriented, CN II-XII Intact, Normal Cognition, Normal Gait, Normal Reflexes, No Motor/Sensory Deficits Psychiatric: Normal Affect, Normal Mood Skin Exam: Warm, Dry, Intact, Normal Color, No Rash Lymphatic: No Adenopathy Course - Vital Signs Last Recorded V/S: Last Vital Signs Temp 96.3 F L 04/28/21 18:33 Pulse 79 04/28/21 18:33 Resp 16 04/28/21 18:33 BP 132/72 04/28/21 18:33 Pulse Ox 98 04/28/21 18:33 - Orders/Labs/Meds Orders: Active Orders 24 hr Category Date Time Status Knee 3V Rt [CR] Stat Exams 04/28/21 18:37 Ordered Tibia Fibula Rt [CR] Stat Exams 04/28/21 18:37 Ordered - Radiology Interpretation Free Text/Narrative:: X-rays of the Rt knee and Tib/Fib show no acute bony changes or fracture. Departure - Departure Time of Disposition: 19:20 Disposition: Home, Self-Care 01 Clinical Impression: Contusion of right knee and lower leg Qualifiers: Encounter type: initial encounter Qualified Code(s): S80.01XA - Contusion of right knee, initial encounter; S80.11XA - Contusion of right lower leg, initial encounter - Discharge Information Additional Instructions: RICE therapy. Small knee immobilizer given to pt. Big Arm Tabs for pain - 1/2 to 1 tab every 4 hours prn. Minimal activity for 2-3 days, slowly increase as tolerated. Follow up in the clinic in a few days for re check - sooner prn. Sepsis Event Note (ED) - Evaluation Sepsis Screening Result: No Definite Risk - Focused Exam Vital Signs: Vital Signs Temp Pulse Resp BP Pulse Ox 04/28/21 18:33 96.3 F L 79 16 132/72 98 - My Orders Last 24 Hours: My Active Orders 04/28/21 18:37 Knee 3V Rt [CR] Stat Tibia Fibula Rt [CR] Stat - Assessment/Plan Last 24 Hours: My Active Orders 04/28/21 18:37 Knee 3V Rt [CR] Stat Tibia Fibula Rt [CR] Stat
--- NOTE | 2021-04-29 14:16 | CR ---
CLINICAL DATA: Injury due to falling. RIGHT LOWER LEG, 28 APRIL 2021: The patient is status post partial right knee arthroplasty. No acute fracture or dislocation. No focal lytic or blastic bone lesions. There is soft tissue swelling anterior to the proximal tibia. There is also soft tissue swelling in the region of the distal patellar tendon. Patellar tendon injury cannot be excluded. An MRI scan may be helpful. No other significant findings. Job: [id number] [facility]
--- NOTE | 2021-04-29 14:18 | CR ---
CLINICAL DATA: Injury due to falling. RIGHT KNEE, 28 APRIL 2021: The patient is status post medial partial arthroplasty. 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 There is a small joint effusion. There is soft tissue swelling anterior to the patella and patellar tendon, consistent with prepatellar bursitis. There is also soft tissue fullness of the patellar tendon. Patellar tendon injury cannot be excluded. There is soft tissue swelling anterior to the proximal tibia also. No acute fracture or dislocation. No focal lytic or blastic bone lesions. Job: [id number] [facility]
== END 2021-04-28 19:24 | disposition home or self-care (01) ==
LOC: LB.ED 18:29
DX: S80.01XA Contusion of right knee, initial encounter (principal); I10 Essential (primary) hypertension; E11.9 Type 2 diabetes mellitus without complications; Z88.8 Allergy status to other drugs, medicaments and biological substances; Z91.040 Latex allergy status; Z88.5 Allergy status to narcotic agent; Z88.0 Allergy status to penicillin; Z79.82 Long term (current) use of aspirin; Z79.84 Long term (current) use of oral hypoglycemic drugs; Z79.899 Other long term (current) drug therapy; W01.0XXA Fall on same level from slipping, tripping and stumbling without subsequent striking against object, initial encounter; Y92.009 Unspecified place in unspecified non-institutional (private) residence as the place of occurrence of the external cause
CPT/HCPCS: 73562; 73590; 99283; A9270

== ENCOUNTER 2022-02-11 10:57 | Emergency (ER) | payer MEDICARE ==
[2022-02-11] MEDS ORDERED: Sodium Chloride 0.9% 10 ML Syringe FLUSH PRN (11:16)
[2022-02-11] MEDS ORDERED: Sodium Chloride 0.9% 1,000 ML IV SCH (11:30)
[2022-02-11 11:59] VITALS: PULSE 76
[2022-02-11] MEDS: Nitroglycerin 0.4 MG Tab.SL SL PRN ×2 (12:52→12:53)
[2022-02-11 12:53] VITALS: BP 147/88
== END 2022-02-11 16:07 | disposition home or self-care (01) ==
LOC: LB.ED 10:57
DX: R07.89 Other chest pain (principal); I10 Essential (primary) hypertension; E11.9 Type 2 diabetes mellitus without complications; Z90.710 Acquired absence of both cervix and uterus; Z88.8 Allergy status to other drugs, medicaments and biological substances; Z91.040 Latex allergy status; Z88.6 Allergy status to analgesic agent; Z88.0 Allergy status to penicillin; Z79.82 Long term (current) use of aspirin; Z79.899 Other long term (current) drug therapy; Z79.84 Long term (current) use of oral hypoglycemic drugs
CPT/HCPCS: 36415; 71045; 80048; 84484; 85025; 93005; 99285; J3490; J7030

== ENCOUNTER 2022-03-06 13:07 | Emergency (ER) | payer MEDICARE ==
[2022-03-06] MEDS ORDERED: Sodium Chloride 0.9% 10 ML Syringe FLUSH PRN (13:35)
[2022-03-06] MEDS ORDERED: Ondansetron 4 MG/2 ML SDV IVPUSH ONE (13:36)
[2022-03-06 14:11] LABS: TROPONIN I HIGH SENSITIVITY 28.4 pg/ml (<=60.4)
[2022-03-06] MEDS ORDERED: Acetaminophen 500 MG Tab PO ONE (14:30)
[2022-03-06] MEDS ORDERED: diphenhydrAMINE 50 MG/ML SDV IVPUSH ONE (14:39)
[2022-03-06] MEDS ORDERED: diphenhydrAMINE 50 MG/ML SDV ONE (14:51)
[2022-03-06] MEDS ORDERED: Labetalol 100 MG/20 ML MDV IVPUSH ONE ×3 (14:55→15:27)
[2022-03-06] MEDS ORDERED: Labetalol 100 MG/20 ML MDV ONE (15:06)
[2022-03-06] MEDS ORDERED: Sodium Chloride 0.9% 1,000 ML IV SCH (15:30)
[2022-03-06 20:52] VITALS: BP 176/87; PULSE 82
== END 2022-03-06 15:35 | disposition home or self-care (01) ==
LOC: LB.ED 13:07
DX: G43.909 Migraine, unspecified, not intractable, without status migrainosus (principal); I16.0 Hypertensive urgency; I10 Essential (primary) hypertension; E11.9 Type 2 diabetes mellitus without complications; Z79.899 Other long term (current) drug therapy; Z79.82 Long term (current) use of aspirin; Z79.84 Long term (current) use of oral hypoglycemic drugs; Z88.0 Allergy status to penicillin; Z88.8 Allergy status to other drugs, medicaments and biological substances; Z91.040 Latex allergy status; Z88.6 Allergy status to analgesic agent; Z20.822 Contact with and (suspected) exposure to COVID-19
CPT/HCPCS: 36415; 70450; 80048; 84484; 85025; 93005; 93010; 96374; 96375; 99283; 99284-25; A9270-GY; J1200; J2405; J3490; U0002

== ENCOUNTER 2023-08-28 10:14 | Inpatient (IN) | payer MEDICARE ==
[2023-08-28] MEDS ORDERED: Sodium Chloride 0.9% 10 ML Syringe FLUSH PRN (15:32)
[2023-08-28] MEDS ORDERED: Labetalol 100 MG/20 ML MDV IVPUSH ONE ×2 (15:37→18:42)
[2023-08-28] MEDS ORDERED: Sodium Chloride 0.9% 1,000 ML IV SCH (15:45)
[2023-08-28 16:15] LABS: BASOPHILS ABSOLUTE AUTO 0.05 K/uL (0.02-0.10); BASOPHILS PERCENT AUTO 0.6 % (0.0-0.5); EOSINOPHILS ABSOLUTE AUTO 0.04 K/uL (0.04-0.40); EOSINOPHILS PERCENT AUTO 0.5 % (1.0-5.0); HEMATOCRIT 40.5 % (37.0-47.0); HEMOGLOBIN 13.2 g/dL (11.5-16.5); LYMPHOCYTES ABSOLUTE AUTO 1.81 K/uL (1.50-4.00); LYMPHOCYTES PERCENT AUTO 22.7 % (20.0-40.0); MEAN CORPUSCULAR HEMOGLOBIN 26.9 pg (27.0-32.0); MEAN CORPUSCULAR HGB CONC 32.6 g/dL (31.0-35.0); MEAN CORPUSCULAR VOLUME 83 fL (76-96); MONOCYTES ABSOLUTE AUTO 0.87 K/uL (0.20-0.80); MONOCYTES PERCENT AUTO 10.9 % (3.0-10.0); NEUTROPHILS ABSOLUTE AUTO 5.22 K/uL (2.00-7.50); NEUTROPHILS PERCENT AUTO 65.3 % (45.0-70.0); PLATELET COUNT,PLT 422 K/uL (150-500); RED BLOOD CELL COUNT 4.91 M/uL (3.80-5.80); RED CELL DISTRIBUTION WIDTH 14.4 % (11.0-16.0)
[2023-08-28 16:37] LABS: ALBUMIN 3.9 g/dL (3.4-5.0); ANION GAP 22.3 mmol/L (5.0-15.0); BILIRUBIN TOTAL 0.6 mg/dL (0.0-1.0); BUN/CREATININE RATIO 16.9 (6-25); CALCIUM 10.2 mg/dL (8.5-10.1); CARBON DIOXIDE,CO2 20.9 mmol/L (21.0-32.0); CREATININE 1.77 mg/dL (0.55-1.02); EST CRCL DRUG DOSING (CG) 21.05 mL/min; POTASSIUM,K 4.2 mmol/L (3.5-5.1); PROTEIN TOTAL,TP 8.5 g/dL (6.4-8.2)
[2023-08-28 16:39] LABS: A/G RATIO 0.9 (0.8-2.0); MAGNESIUM 1.8 mg/dL (1.8-2.4); PHOSPHORUS 2.7 mg/dL (2.5-4.9); TROPONIN I HIGH SENSITIVITY 20.5 pg/ml (<=60.4)
[2023-08-28 17:30] LABS: APPEARANCE,URINE CLEAR (CLEAR); BILIRUBIN,URINE NEGATIVE (NEGATIVE); COLOR,URINE YELLOW; GLUCOSE,URINE 500 mg/dL (NEGATIVE); KETONES,URINE 15 mg/dL (NEGATIVE); LEUKOCYTE ESTERASE,URINE NEGATIVE (NEGATIVE); NITRITE,URINE POSITIVE (NEGATIVE); OCCULT BLOOD,URINE MODERATE (NEGATIVE); PH,URINE 6.5 (5.0-8.0); PROTEIN,URINE >=300 mg/dL (NEGATIVE); UROBILINOGEN,URINE 0.2 E.U./dL (0.2-1.0)
[2023-08-28 17:37] LABS: BACTERIA,URINE MANY /HPF; FINE GRANULAR CASTS,URINE OCCASIONAL /HPF; SQUAMOUS EPITHELIAL CELLS,UR OCCASIONAL /HPF
[2023-08-28 17:38] LABS: AMORPHOUS SEDIMENT,URINE MANY /HPF
[2023-08-28] MEDS ORDERED: HYDROmorphone 2 MG/ML Syringe IVPUSH ONE (17:38)
[2023-08-28] MEDS ORDERED: HYDROmorphone 2 MG/ML Syringe ONE (18:00)
[2023-08-28] MEDS ORDERED: CAFFEINE PO PRN (18:41)
[2023-08-28] MEDS ORDERED: BUTALBITAL PO PRN (18:41)
[2023-08-28] MEDS ORDERED: [UNRECOGNIZED DRUG - OTHER] PO PRN (18:41)
[2023-08-28] MEDS ORDERED: COD PO PRN (18:41)
[2023-08-28] MEDS ORDERED: ACETAM PO PRN (18:41)
[2023-08-28] MEDS ORDERED: DEXTROSE IV SCH (18:45)
[2023-08-28] MEDS ORDERED: LEVOFLOXACIN IV SCH (18:45)
[2023-08-28] MEDS ORDERED: [UNRECOGNIZED DRUG - OTHER] IV SCH (18:45)
[2023-08-28] MEDS ORDERED: WATER IV SCH (18:45)
[2023-08-28] MEDS: Lactated Ringers 1,000 ML IV SCH (20:19)
[2023-08-28] MEDS: Gabapentin 300 MG Cap PO SCH (21:09)
[2023-08-28] MEDS: Pravastatin 20 MG Tab PO SCH (21:09)
[2023-08-29] MEDS: HYDROmorphone 2 MG/ML Syringe IVPUSH PRN (02:43)
[2023-08-29] MEDS: Pregabalin 75 MG Cap PO SCH (07:54)
[2023-08-29] MEDS: Sertraline 100 MG Tab PO SCH (07:56)
[2023-08-29] MEDS: Omeprazole 20 MG Cap.CR PO SCH (07:56)
[2023-08-29] MEDS: Losartan 50 MG Tab PO SCH (07:57)
[2023-08-29] MEDS: Metoprolol Tartrate 25 MG Tab PO SCH ×2 (07:57→19:53)
[2023-08-29] MEDS: Gabapentin 300 MG Cap PO SCH ×3 (07:57→19:51)
[2023-08-29] MEDS: Diltiazem 180 MG Cap.CD PO SCH (07:58)
[2023-08-29] MEDS: Aspirin 81 MG Tab.EC PO SCH (07:58)
[2023-08-29 08:20] LABS: ANION GAP 16.2 mmol/L (5.0-15.0); BUN/CREATININE RATIO 16.2 (6-25); CALCIUM 8.7 mg/dL (8.5-10.1); CARBON DIOXIDE,CO2 25.2 mmol/L (21.0-32.0); CREATININE 2.29 mg/dL (0.55-1.02); EST CRCL DRUG DOSING (CG) 16.27 mL/min; POTASSIUM,K 4.4 mmol/L (3.5-5.1)
[2023-08-29] MEDS: Lactated Ringers 1,000 ML IV SCH (14:05)
[2023-08-29] MEDS: Pravastatin 20 MG Tab PO SCH (19:51)
[2023-08-30] MEDS: Lactated Ringers 1,000 ML IV SCH ×2 (04:07→17:29)
[2023-08-30] MEDS: Omeprazole 20 MG Cap.CR PO SCH (08:13)
[2023-08-30] MEDS: Aspirin 81 MG Tab.EC PO SCH (08:13)
[2023-08-30] MEDS: Losartan 50 MG Tab PO SCH (08:13)
[2023-08-30] MEDS: Metoprolol Tartrate 25 MG Tab PO SCH ×2 (08:13→20:13)
[2023-08-30] MEDS: Pregabalin 75 MG Cap PO SCH (08:13)
[2023-08-30] MEDS: Diltiazem 180 MG Cap.CD PO SCH (08:15)
[2023-08-30] MEDS: Gabapentin 300 MG Cap PO SCH (08:15)
[2023-08-30] MEDS: Sertraline 100 MG Tab PO SCH (08:15)
[2023-08-30 08:29] LABS: ANION GAP 14.9 mmol/L (5.0-15.0); BUN/CREATININE RATIO 16.2 (6-25); CALCIUM 8.2 mg/dL (8.5-10.1); CARBON DIOXIDE,CO2 25.4 mmol/L (21.0-32.0); EST CRCL DRUG DOSING (CG) 11.87 mL/min; POTASSIUM,K 4.3 mmol/L (3.5-5.1)
[2023-08-30 08:39] LABS: CREATININE 3.14 mg/dL (0.55-1.02)
[2023-08-30] MEDS: Ciprofloxacin 250 MG Tab PO SCH ×2 (09:48→20:13)
[2023-08-30 17:19] LABS: BUN/CREATININE RATIO 16.8 (6-25); CALCIUM 7.8 mg/dL (8.5-10.1); CARBON DIOXIDE,CO2 25.2 mmol/L (21.0-32.0); CREATININE 2.74 mg/dL (0.55-1.02); EST CRCL DRUG DOSING (CG) 13.6 mL/min; POTASSIUM,K 4.2 mmol/L (3.5-5.1)
[2023-08-30] MEDS: HYDROmorphone 2 MG/ML Syringe IVPUSH PRN (20:28)
[2023-08-31] MEDS: Lactated Ringers 1,000 ML IV SCH (06:19)
[2023-08-31] MEDS: Sertraline 100 MG Tab PO SCH (08:27)
[2023-08-31] MEDS: Omeprazole 20 MG Cap.CR PO SCH (08:27)
[2023-08-31] MEDS: Diltiazem 180 MG Cap.CD PO SCH (08:27)
[2023-08-31] MEDS: Ciprofloxacin 250 MG Tab PO SCH ×2 (08:27→19:46)
[2023-08-31] MEDS: Metoprolol Tartrate 25 MG Tab PO SCH ×2 (08:27→19:45)
[2023-08-31] MEDS: Pregabalin 75 MG Cap PO SCH (08:28)
[2023-08-31] MEDS: Gabapentin 300 MG Cap PO SCH (08:28)
[2023-08-31] MEDS: Aspirin 81 MG Tab.EC PO SCH (08:28)
[2023-08-31 08:31] LABS: BUN/CREATININE RATIO 19.3 (6-25); CALCIUM 8.1 mg/dL (8.5-10.1); CARBON DIOXIDE,CO2 26.5 mmol/L (21.0-32.0); CREATININE 2.23 mg/dL (0.55-1.02); EST CRCL DRUG DOSING (CG) 16.71 mL/min; POTASSIUM,K 4.5 mmol/L (3.5-5.1)
[2023-09-01 08:22] LABS: ANION GAP 12.9 mmol/L (5.0-15.0); BUN/CREATININE RATIO 20.4 (6-25); CALCIUM 8.4 mg/dL (8.5-10.1); CARBON DIOXIDE,CO2 26.3 mmol/L (21.0-32.0); CREATININE 1.81 mg/dL (0.55-1.02); EST CRCL DRUG DOSING (CG) 20.59 mL/min; POTASSIUM,K 4.2 mmol/L (3.5-5.1)
[2023-09-01] MEDS: Metoprolol Tartrate 25 MG Tab PO SCH (09:22)
[2023-09-01] MEDS: Omeprazole 20 MG Cap.CR PO SCH (09:22)
[2023-09-01] MEDS: Gabapentin 300 MG Cap PO SCH (09:22)
[2023-09-01] MEDS: Diltiazem 180 MG Cap.CD PO SCH (09:23)
[2023-09-01] MEDS: Ciprofloxacin 250 MG Tab PO SCH (09:23)
[2023-09-01] MEDS: Sertraline 100 MG Tab PO SCH (09:23)
[2023-09-01] MEDS: Aspirin 81 MG Tab.EC PO SCH (09:23)
[2023-09-01] MEDS ORDERED: FLU (Fluad Quad) 2023-24(65UP)/MF59C/PF 60 MCG/0.5 ML Syringe IM ONE (11:00)
[2023-09-01 13:55] VITALS: BP 154/64; PULSE 72
== END 2023-09-01 13:25 | disposition home or self-care (01) | DRG 641 ==
LOC: LB.ED 10:14 → LB.MS 18:35 → UNDOADMIN 18:36 → LB.MS 18:38
PROVIDERS: ADMIT Surgery; ATTEND Surgery
DX: E86.0 Dehydration (principal); N17.9 Acute kidney failure, unspecified; N30.00 Acute cystitis without hematuria; I16.0 Hypertensive urgency; F03.90 Unspecified dementia, unspecified severity, without behavioral disturbance, psychotic disturbance, mood disturbance, and anxiety; Z66 Do not resuscitate; I12.9 Hypertensive chronic kidney disease with stage 1 through stage 4 chronic kidney disease, or unspecified chronic kidney disease; E11.22 Type 2 diabetes mellitus with diabetic chronic kidney disease; N18.9 Chronic kidney disease, unspecified; G43.909 Migraine, unspecified, not intractable, without status migrainosus; D72.829 Elevated white blood cell count, unspecified; Z88.8 Allergy status to other drugs, medicaments and biological substances; Z88.0 Allergy status to penicillin; Z88.5 Allergy status to narcotic agent; Z91.040 Latex allergy status; Z91.013 Allergy to seafood; Z79.82 Long term (current) use of aspirin; Z79.899 Other long term (current) drug therapy; Z90.710 Acquired absence of both cervix and uterus; Z96.659 Presence of unspecified artificial knee joint; Z96.619 Presence of unspecified artificial shoulder joint; Z98.890 Other specified postprocedural states
CPT/HCPCS: 36415; 71250; 74176; 80048; 80053; 81001; 83605; 83735; 84100; 84484; 85025; 87040; 87086; 90694; 93005; 93010; 96361; 96374; 96375; 97110-GP; 97116-GP; 97161-GP; 97165-GO; 97530-GO; 97535-GO; 99223; 99231; 99238; 99285-25; A9270-GY; C1758; J1170; J1956; J7030; J7120

== ENCOUNTER 2023-10-26 16:07 | Emergency (ER) | payer MEDICARE ==
[2023-10-26] MEDS ORDERED: Bacitracin Oint 1 GM U/D Packet TOP ONE (16:39)
[2023-10-26] MEDS ORDERED: Lidocaine 1% 5 ML VIAL INJECT ONE (16:39)
[2023-10-26 19:28] VITALS: BP 158/57; PULSE 55
== END 2023-10-26 17:06 | disposition home or self-care (01) ==
LOC: LB.ED 16:07
DX: S41.112A Laceration without foreign body of left upper arm, initial encounter (principal); I10 Essential (primary) hypertension; E11.9 Type 2 diabetes mellitus without complications; Z91.040 Latex allergy status; Z88.0 Allergy status to penicillin; Z88.5 Allergy status to narcotic agent; Z88.8 Allergy status to other drugs, medicaments and biological substances; Z91.013 Allergy to seafood; Z79.82 Long term (current) use of aspirin; Z79.899 Other long term (current) drug therapy; Z90.710 Acquired absence of both cervix and uterus; W26.8XXA Contact with other sharp object(s), not elsewhere classified, initial encounter
CPT/HCPCS: 12004; 99283

== ENCOUNTER 2024-01-05 13:40 | Emergency (ER) | payer MEDICARE ==
[2024-01-05 13:56] VITALS: BP 194/90; PULSE 74
[2024-01-05] MEDS ORDERED: traMADol 50 MG Tab ONE (15:00)
== END 2024-01-05 15:08 | disposition home or self-care (01) ==
LOC: LB.ED 13:40
DX: S52.692A Other fracture of lower end of left ulna, initial encounter for closed fracture (principal); I10 Essential (primary) hypertension; K21.9 Gastro-esophageal reflux disease without esophagitis; E66.9 Obesity, unspecified; Z90.710 Acquired absence of both cervix and uterus; Z79.82 Long term (current) use of aspirin; Z79.899 Other long term (current) drug therapy; Z88.0 Allergy status to penicillin; Z91.013 Allergy to seafood; Z91.040 Latex allergy status; Z88.5 Allergy status to narcotic agent; Z88.8 Allergy status to other drugs, medicaments and biological substances; W19.XXXA Unspecified fall, initial encounter
CPT/HCPCS: 29125; 73060; 73090; 99283; A9270

== ENCOUNTER 2024-05-13 19:49 | Inpatient (IN) | payer MEDICARE ==
[2024-05-13 20:18] LABS: BASOPHILS ABSOLUTE AUTO 0.03 K/uL (0.02-0.10); BASOPHILS PERCENT AUTO 0.4 % (0.0-0.5); EOSINOPHILS ABSOLUTE AUTO 0.22 K/uL (0.04-0.40); EOSINOPHILS PERCENT AUTO 3.2 % (1.0-5.0); HEMATOCRIT 40.2 % (37.0-47.0); HEMOGLOBIN 12.8 g/dL (11.5-16.5); LYMPHOCYTES ABSOLUTE AUTO 2.22 K/uL (1.50-4.00); LYMPHOCYTES PERCENT AUTO 31.9 % (20.0-40.0); MEAN CORPUSCULAR HEMOGLOBIN 28.5 pg (27.0-32.0); MEAN CORPUSCULAR HGB CONC 31.8 g/dL (31.0-35.0); MEAN CORPUSCULAR VOLUME 90 fL (76-96); MEAN PLATELET VOLUME 9.5 fL (6.0-10.0); MONOCYTES ABSOLUTE AUTO 0.66 K/uL (0.20-0.80); MONOCYTES PERCENT AUTO 9.5 % (3.0-10.0); NEUTROPHILS ABSOLUTE AUTO 3.83 K/uL (2.00-7.50); PLATELET COUNT,PLT 306 K/uL (150-500); RED BLOOD CELL COUNT 4.49 M/uL (3.80-5.80); RED CELL DISTRIBUTION WIDTH 14.3 % (11.0-16.0)
[2024-05-13 20:30] LABS: APPEARANCE,URINE CLEAR (CLEAR); BILIRUBIN,URINE NEGATIVE (NEGATIVE); COLOR,URINE YELLOW; GLUCOSE,URINE NEGATIVE (NEGATIVE); KETONES,URINE NEGATIVE (NEGATIVE); LEUKOCYTE ESTERASE,URINE NEGATIVE (NEGATIVE); NITRITE,URINE NEGATIVE (NEGATIVE); OCCULT BLOOD,URINE NEGATIVE (NEGATIVE); PROTEIN,URINE 30 mg/dL (NEGATIVE); UROBILINOGEN,URINE 0.2 E.U./dL (0.2-1.0)
[2024-05-13 20:40] LABS: A/G RATIO 0.7 (0.8-2.0); ALBUMIN 3.3 g/dL (3.4-5.0); ANION GAP 13.1 mmol/L (5.0-15.0); BILIRUBIN TOTAL 0.2 mg/dL (0.0-1.0); CALCIUM 8.4 mg/dL (8.5-10.1); CARBON DIOXIDE,CO2 27.3 mmol/L (21.0-32.0); EST CRCL DRUG DOSING (CG) 8.23 mL/min; MAGNESIUM 2.9 mg/dL (1.8-2.4); POTASSIUM,K 4.4 mmol/L (3.5-5.1); PROTEIN TOTAL,TP 8.1 g/dL (6.4-8.2)
[2024-05-13 20:43] LABS: RBC,URINE 0-5 /HPF; WBC,URINE NOT SEEN /HPF
[2024-05-13 20:44] LABS: CREATININE 4.76 mg/dL (0.55-1.02)
[2024-05-13] MEDS ORDERED: Sodium Chloride 0.9% 10 ML Syringe FLUSH PRN (20:47)
[2024-05-13] MEDS: Sodium Chloride 0.9% 250 ML IV SCH (21:00)
[2024-05-13] MEDS: Sodium Chloride 0.9% 1,000 ML IV SCH (22:00)
[2024-05-14] MEDS: Multivitamin Tab PO SCH (07:50)
[2024-05-14] MEDS: Omeprazole 20 MG Cap.CR PO SCH (07:50)
[2024-05-14] MEDS: traMADol 50 MG Tab PO ONE (07:50)
[2024-05-14] MEDS: Losartan 50 MG Tab PO SCH (07:51)
[2024-05-14] MEDS: Apixaban 2.5 MG Tab PO SCH (07:51)
[2024-05-14] MEDS: Aspirin 81 MG Tab.EC PO SCH (07:51)
[2024-05-14] MEDS: Diltiazem 180 MG Cap.CD PO SCH (07:51)
[2024-05-14] MEDS: Metoprolol Tartrate 25 MG Tab PO SCH (07:51)
[2024-05-14] MEDS: Sertraline 100 MG Tab PO SCH (07:51)
[2024-05-14 09:05] LABS: BASOPHILS ABSOLUTE AUTO 0.03 K/uL (0.02-0.10); BASOPHILS PERCENT AUTO 0.3 % (0.0-0.5); EOSINOPHILS ABSOLUTE AUTO 0.31 K/uL (0.04-0.40); EOSINOPHILS PERCENT AUTO 3.5 % (1.0-5.0); HEMOGLOBIN 12.5 g/dL (11.5-16.5); LYMPHOCYTES PERCENT AUTO 20.1 % (20.0-40.0); MEAN CORPUSCULAR HEMOGLOBIN 28.3 pg (27.0-32.0); MEAN CORPUSCULAR HGB CONC 31.3 g/dL (31.0-35.0); MEAN CORPUSCULAR VOLUME 91 fL (76-96); MEAN PLATELET VOLUME 10.1 fL (6.0-10.0); MONOCYTES ABSOLUTE AUTO 0.74 K/uL (0.20-0.80); MONOCYTES PERCENT AUTO 8.2 % (3.0-10.0); NEUTROPHILS ABSOLUTE AUTO 6.09 K/uL (2.00-7.50); NEUTROPHILS PERCENT AUTO 67.9 % (45.0-70.0); PLATELET COUNT,PLT 284 K/uL (150-500); RED BLOOD CELL COUNT 4.42 M/uL (3.80-5.80); RED CELL DISTRIBUTION WIDTH 14.4 % (11.0-16.0)
[2024-05-14 09:12] LABS: A/G RATIO 0.6 (0.8-2.0); ALBUMIN 3.1 g/dL (3.4-5.0); ANION GAP 18.6 mmol/L (5.0-15.0); BILIRUBIN TOTAL 0.2 mg/dL (0.0-1.0); BUN/CREATININE RATIO 17.1 (6-25); CALCIUM 7.8 mg/dL (8.5-10.1); CARBON DIOXIDE,CO2 22.7 mmol/L (21.0-32.0); EST CRCL DRUG DOSING (CG) 8.81 mL/min; MAGNESIUM 2.8 mg/dL (1.8-2.4); POTASSIUM,K 4.3 mmol/L (3.5-5.1); PROTEIN TOTAL,TP 8.2 g/dL (6.4-8.2)
[2024-05-14 09:23] LABS: CREATININE 4.45 mg/dL (0.55-1.02)
[2024-05-14] MEDS: Non-Formulary Medication 1 Each (Dapagliflozin Propanediol [Farxiga] 5 MG Tablet) PO SCH (09:50)
[2024-05-14] MEDS: Empagliflozin 10 MG Tab PO SCH (10:29)
[2024-05-14] MEDS: Acetaminophen 325 MG Tab PO PRN (13:56)
[2024-05-14] MEDS: Sennosides/Docusate Sodium 50-8.6 MG Tab PO PRN (20:34)
[2024-05-15] MEDS: traMADol 50 MG Tab PO PRN (00:29)
[2024-05-15 08:38] LABS: BASOPHILS ABSOLUTE AUTO 0.02 K/uL (0.02-0.10); BASOPHILS PERCENT AUTO 0.2 % (0.0-0.5); EOSINOPHILS ABSOLUTE AUTO 0.23 K/uL (0.04-0.40); EOSINOPHILS PERCENT AUTO 2.8 % (1.0-5.0); HEMATOCRIT 33.9 % (37.0-47.0); HEMOGLOBIN 10.8 g/dL (11.5-16.5); LYMPHOCYTES ABSOLUTE AUTO 1.53 K/uL (1.50-4.00); LYMPHOCYTES PERCENT AUTO 18.9 % (20.0-40.0); MEAN CORPUSCULAR HEMOGLOBIN 28.8 pg (27.0-32.0); MEAN CORPUSCULAR HGB CONC 31.9 g/dL (31.0-35.0); MEAN CORPUSCULAR VOLUME 90 fL (76-96); MEAN PLATELET VOLUME 10.3 fL (6.0-10.0); MONOCYTES PERCENT AUTO 8.7 % (3.0-10.0); NEUTROPHILS ABSOLUTE AUTO 5.61 K/uL (2.00-7.50); NEUTROPHILS PERCENT AUTO 69.4 % (45.0-70.0); PLATELET COUNT,PLT 271 K/uL (150-500); RED BLOOD CELL COUNT 3.75 M/uL (3.80-5.80); RED CELL DISTRIBUTION WIDTH 14.3 % (11.0-16.0); WHITE BLOOD CELL COUNT,WBC 8.1 K/uL (4.0-11.0)
[2024-05-15 08:53] LABS: ALBUMIN 2.6 g/dL (3.4-5.0); ANION GAP 14.6 mmol/L (5.0-15.0); BILIRUBIN TOTAL 0.2 mg/dL (0.0-1.0); BUN/CREATININE RATIO 21.8 (6-25); CALCIUM 7.3 mg/dL (8.5-10.1); CARBON DIOXIDE,CO2 22.6 mmol/L (21.0-32.0); EST CRCL DRUG DOSING (CG) 12.77 mL/min; MAGNESIUM 2.3 mg/dL (1.8-2.4); POTASSIUM,K 4.2 mmol/L (3.5-5.1); PROTEIN TOTAL,TP 6.6 g/dL (6.4-8.2)
[2024-05-15 08:54] LABS: A/G RATIO 0.7 (0.8-2.0)
[2024-05-15 08:56] LABS: CREATININE 3.07 mg/dL (0.55-1.02)
[2024-05-16] MEDS: Losartan 25 MG Tab PO ONE (00:29)
[2024-05-16 08:45] LABS: BASOPHILS ABSOLUTE AUTO 0.02 K/uL (0.02-0.10); BASOPHILS PERCENT AUTO 0.2 % (0.0-0.5); EOSINOPHILS ABSOLUTE AUTO 0.22 K/uL (0.04-0.40); EOSINOPHILS PERCENT AUTO 2.1 % (1.0-5.0); HEMATOCRIT 37.5 % (37.0-47.0); HEMOGLOBIN 11.9 g/dL (11.5-16.5); LYMPHOCYTES ABSOLUTE AUTO 2.08 K/uL (1.50-4.00); LYMPHOCYTES PERCENT AUTO 20.2 % (20.0-40.0); MEAN CORPUSCULAR HEMOGLOBIN 28.3 pg (27.0-32.0); MEAN CORPUSCULAR HGB CONC 31.7 g/dL (31.0-35.0); MEAN CORPUSCULAR VOLUME 89 fL (76-96); MEAN PLATELET VOLUME 10.1 fL (6.0-10.0); MONOCYTES ABSOLUTE AUTO 0.79 K/uL (0.20-0.80); MONOCYTES PERCENT AUTO 7.7 % (3.0-10.0); NEUTROPHILS ABSOLUTE AUTO 7.19 K/uL (2.00-7.50); NEUTROPHILS PERCENT AUTO 69.8 % (45.0-70.0); PLATELET COUNT,PLT 287 K/uL (150-500); RED CELL DISTRIBUTION WIDTH 14.3 % (11.0-16.0); WHITE BLOOD CELL COUNT,WBC 10.3 K/uL (4.0-11.0)
[2024-05-16 08:52] LABS: A/G RATIO 0.6 (0.8-2.0); ALBUMIN 2.9 g/dL (3.4-5.0); ANION GAP 16.4 mmol/L (5.0-15.0); BILIRUBIN TOTAL 0.5 mg/dL (0.0-1.0); BUN/CREATININE RATIO 17.9 (6-25); CALCIUM 8.4 mg/dL (8.5-10.1); CARBON DIOXIDE,CO2 23.1 mmol/L (21.0-32.0); CREATININE 2.12 mg/dL (0.55-1.02); EST CRCL DRUG DOSING (CG) 18.49 mL/min; POTASSIUM,K 4.5 mmol/L (3.5-5.1); PROTEIN TOTAL,TP 7.8 g/dL (6.4-8.2)
[2024-05-16 16:20] LABS: ANION GAP 15.2 mmol/L (5.0-15.0); BUN/CREATININE RATIO 18.1 (6-25); CALCIUM 8.5 mg/dL (8.5-10.1); CARBON DIOXIDE,CO2 22.2 mmol/L (21.0-32.0); CREATININE 1.93 mg/dL (0.55-1.02); EST CRCL DRUG DOSING (CG) 20.31 mL/min; POTASSIUM,K 4.4 mmol/L (3.5-5.1)
[2024-05-16] MEDS: hydrALAZINE 10 MG Tab PO PRN (19:44)
[2024-05-16] MEDS: Labetalol 100 MG/20 ML MDV IVPUSH ONE (21:19)
[2024-05-17] MEDS: Labetalol 100 MG/20 ML MDV IVPUSH ONE ×2 (00:16→16:36)
[2024-05-17] MEDS: Acetaminophen 500 MG Tab PO PRN (01:38)
[2024-05-17] MEDS: Furosemide 20 MG Tab PO SCH (07:45)
[2024-05-17] MEDS: Losartan 25 MG Tab PO SCH (07:48)
[2024-05-17 07:50] LABS: BASOPHILS ABSOLUTE AUTO 0.04 K/uL (0.02-0.10); BASOPHILS PERCENT AUTO 0.5 % (0.0-0.5); EOSINOPHILS ABSOLUTE AUTO 0.17 K/uL (0.04-0.40); EOSINOPHILS PERCENT AUTO 2.3 % (1.0-5.0); HEMATOCRIT 34.7 % (37.0-47.0); HEMOGLOBIN 11.1 g/dL (11.5-16.5); LYMPHOCYTES ABSOLUTE AUTO 1.49 K/uL (1.50-4.00); LYMPHOCYTES PERCENT AUTO 19.9 % (20.0-40.0); MEAN CORPUSCULAR HEMOGLOBIN 28.2 pg (27.0-32.0); MEAN CORPUSCULAR VOLUME 88 fL (76-96); MEAN PLATELET VOLUME 9.5 fL (6.0-10.0); MONOCYTES ABSOLUTE AUTO 0.67 K/uL (0.20-0.80); NEUTROPHILS ABSOLUTE AUTO 5.11 K/uL (2.00-7.50); NEUTROPHILS PERCENT AUTO 68.3 % (45.0-70.0); PLATELET COUNT,PLT 298 K/uL (150-500); RED BLOOD CELL COUNT 3.93 M/uL (3.80-5.80); RED CELL DISTRIBUTION WIDTH 13.9 % (11.0-16.0); WHITE BLOOD CELL COUNT,WBC 7.5 K/uL (4.0-11.0)
[2024-05-17] MEDS ORDERED: Losartan 50 MG Tab PO SCH (08:00)
[2024-05-17 08:13] LABS: ANION GAP 15.6 mmol/L (5.0-15.0); BUN/CREATININE RATIO 15.7 (6-25); CALCIUM 8.4 mg/dL (8.5-10.1); CARBON DIOXIDE,CO2 23.5 mmol/L (21.0-32.0); CREATININE 1.85 mg/dL (0.55-1.02); EST CRCL DRUG DOSING (CG) 21.19 mL/min; POTASSIUM,K 4.1 mmol/L (3.5-5.1)
[2024-05-17] MEDS: Losartan 25 MG Tab PO ONE (08:54)
[2024-05-17 10:04] LABS: INFLUENZA A NAA NEGATIVE (NEGATIVE); INFLUENZA B NAA NEGATIVE (NEGATIVE); RESPIRATORY SYNCYTIAL VIR NAA NEGATIVE (NEGATIVE)
[2024-05-17 10:08] LABS: CORONAVIRUS COVID-19 NAA POSITIVE (NEGATIVE)
[2024-05-17] MEDS: Benzonatate 100 MG Cap PO PRN (16:31)
[2024-05-17] MEDS: Labetalol 100 MG in Sodium Chloride 0.9% 80 ML IV SCH (22:06)
[2024-05-18] MEDS: Labetalol 100 MG/20 ML MDV ONE (04:45)
[2024-05-18] MEDS: niCARdipine HCl 25 MG in Sodium Chloride 0.9% 240 ML IV SCH (07:05)
[2024-05-18] MEDS: Losartan 50 MG Tab PO SCH (07:35)
[2024-05-18] MEDS: amLODIPine 5 MG Tab PO SCH (07:36)
[2024-05-18] MEDS ORDERED: Losartan 50 MG Tab PO SCH (08:00)
[2024-05-18 08:38] LABS: BASOPHILS ABSOLUTE AUTO 0.03 K/uL (0.02-0.10); BASOPHILS PERCENT AUTO 0.3 % (0.0-0.5); EOSINOPHILS ABSOLUTE AUTO 0.21 K/uL (0.04-0.40); EOSINOPHILS PERCENT AUTO 2.4 % (1.0-5.0); HEMATOCRIT 33.6 % (37.0-47.0); HEMOGLOBIN 10.8 g/dL (11.5-16.5); LYMPHOCYTES ABSOLUTE AUTO 1.22 K/uL (1.50-4.00); LYMPHOCYTES PERCENT AUTO 13.8 % (20.0-40.0); MEAN CORPUSCULAR HEMOGLOBIN 28.5 pg (27.0-32.0); MEAN CORPUSCULAR HGB CONC 32.1 g/dL (31.0-35.0); MEAN CORPUSCULAR VOLUME 89 fL (76-96); MEAN PLATELET VOLUME 9.8 fL (6.0-10.0); MONOCYTES ABSOLUTE AUTO 0.82 K/uL (0.20-0.80); MONOCYTES PERCENT AUTO 9.3 % (3.0-10.0); NEUTROPHILS ABSOLUTE AUTO 6.53 K/uL (2.00-7.50); NEUTROPHILS PERCENT AUTO 74.2 % (45.0-70.0); PLATELET COUNT,PLT 322 K/uL (150-500); RED BLOOD CELL COUNT 3.79 M/uL (3.80-5.80); RED CELL DISTRIBUTION WIDTH 14.1 % (11.0-16.0); WHITE BLOOD CELL COUNT,WBC 8.8 K/uL (4.0-11.0)
[2024-05-18 09:07] LABS: A/G RATIO 0.5 (0.8-2.0); ALBUMIN 2.6 g/dL (3.4-5.0); BILIRUBIN TOTAL 0.4 mg/dL (0.0-1.0); BUN/CREATININE RATIO 13.5 (6-25); CALCIUM 8.5 mg/dL (8.5-10.1); CREATININE 1.78 mg/dL (0.55-1.02); EST CRCL DRUG DOSING (CG) 22.02 mL/min; POTASSIUM,K 3.7 mmol/L (3.5-5.1); PROTEIN TOTAL,TP 7.6 g/dL (6.4-8.2)
[2024-05-18 09:12] LABS: ANION GAP 14.3 mmol/L (5.0-15.0); CARBON DIOXIDE,CO2 23.4 mmol/L (21.0-32.0)
[2024-05-18] MEDS: Ondansetron 4 MG Tab.DIS PO PRN (14:49)
[2024-05-18] MEDS: Ondansetron 4 MG Tab.DIS ONE (14:50)
[2024-05-18] MEDS: guaiFENesin/Dextromethorphan 100-10 MG/5 ML Soln 10 ML Cup PO PRN (16:24)
[2024-05-19 08:39] LABS: HEMATOCRIT 34.7 % (37.0-47.0); MEAN CORPUSCULAR HEMOGLOBIN 28.4 pg (27.0-32.0); MEAN CORPUSCULAR HGB CONC 31.7 g/dL (31.0-35.0); MEAN PLATELET VOLUME 9.5 fL (6.0-10.0); RED BLOOD CELL COUNT 3.88 M/uL (3.80-5.80); RED CELL DISTRIBUTION WIDTH 14.1 % (11.0-16.0); WHITE BLOOD CELL COUNT,WBC 7.8 K/uL (4.0-11.0)
[2024-05-19 09:33] LABS: ANION GAP 13.9 mmol/L (5.0-15.0); CALCIUM 8.6 mg/dL (8.5-10.1); CARBON DIOXIDE,CO2 24.9 mmol/L (21.0-32.0); CREATININE 1.91 mg/dL (0.55-1.02); EST CRCL DRUG DOSING (CG) 20.52 mL/min; POTASSIUM,K 3.8 mmol/L (3.5-5.1)
[2024-05-19] MEDS ORDERED: Lactated Ringers 1,000 ML IV SCH (10:15)
[2024-05-19] MEDS: Lactated Ringers 500 ML IV ONE (10:25)
[2024-05-19] MEDS: hydrOXYzine HCl 25 MG Tab PO ONE (15:42)
[2024-05-19] MEDS ORDERED: cloNIDine 0.1 MG Tab PO PRN (18:17)
[2024-05-20 09:36] VITALS: PULSE 82
[2024-05-20 15:09] VITALS: BP 141/74
== END 2024-05-20 13:16 | disposition home or self-care (01) | DRG 682 ==
LOC: LB.ED 19:49 → UNDOADMOB 21:00 → LB.MS 21:00 → INTOOBSV 22:07 → OBSVTOIN 22:07 → LB.MS 05-17 21:42 → OBSVTOIN 05-17 22:00
PROVIDERS: ADMIT Nurse Practitioner Family; ATTEND Nurse Practitioner Family
PROC: 8E0ZXY6 Isolation (ICD-10-PCS; principal; 2024-05-13)
DX: N17.9 Acute kidney failure, unspecified (principal); U07.1 COVID-19; R79.89 Other specified abnormal findings of blood chemistry; I10 Essential (primary) hypertension; F03.93 Unspecified dementia, unspecified severity, with mood disturbance; E66.9 Obesity, unspecified; F03.94 Unspecified dementia, unspecified severity, with anxiety; Z79.899 Other long term (current) drug therapy; Z79.82 Long term (current) use of aspirin; I12.9 Hypertensive chronic kidney disease with stage 1 through stage 4 chronic kidney disease, or unspecified chronic kidney disease; N18.4 Chronic kidney disease, stage 4 (severe); Z88.5 Allergy status to narcotic agent; Z91.013 Allergy to seafood; Z88.8 Allergy status to other drugs, medicaments and biological substances; W19.XXXA Unspecified fall, initial encounter; S00.83XA Contusion of other part of head, initial encounter; S20.219A Contusion of unspecified front wall of thorax, initial encounter; H11.32 Conjunctival hemorrhage, left eye; K21.9 Gastro-esophageal reflux disease without esophagitis; E11.42 Type 2 diabetes mellitus with diabetic polyneuropathy; E78.5 Hyperlipidemia, unspecified; E11.22 Type 2 diabetes mellitus with diabetic chronic kidney disease; G43.909 Migraine, unspecified, not intractable, without status migrainosus; R09.02 Hypoxemia; R07.81 Pleurodynia; Z96.659 Presence of unspecified artificial knee joint; Z96.619 Presence of unspecified artificial shoulder joint; Z79.4 Long term (current) use of insulin; Z88.0 Allergy status to penicillin; Z91.040 Latex allergy status; Z90.710 Acquired absence of both cervix and uterus; Z88.6 Allergy status to analgesic agent; W18.30XA Fall on same level, unspecified, initial encounter; Y92.009 Unspecified place in unspecified non-institutional (private) residence as the place of occurrence of the external cause
CPT/HCPCS: 0241U; 36415; 70450; 70486; 71111; 80048; 80053; 81001; 82947; 83735; 85025; 85027; 93005; 93010; 96360; 97161-GP; 97530-GP; 99222; 99232; 99238; 99284; 99285-25; A0425; A0428; A9270-GY; J1921; J3490; J7030; J7050; J7120; Q0162

== ENCOUNTER 2025-10-04 19:56 | Emergency (ER) | payer MEDICARE ==
[2025-10-04 20:13] LABS: APPEARANCE,URINE CLEAR (CLEAR); GLUCOSE,URINE NEGATIVE (NEGATIVE); OCCULT BLOOD,URINE NEGATIVE (NEGATIVE)
[2025-10-04 20:17] LABS: SQUAMOUS EPITHELIAL CELLS,UR FEW /HPF
[2025-10-04 20:44] LABS: MEAN PLATELET VOLUME 9.4 fL (6.0-10.0); PLATELET COUNT,PLT 344.0 K/uL (150-500); RED BLOOD CELL COUNT 4.24 M/uL (3.80-5.80); RED CELL DISTRIBUTION WIDTH 14.8 % (11.0-16.0); WHITE BLOOD CELL COUNT,WBC 6.1 K/uL (4.0-11.0)
[2025-10-04 20:52] LABS: BLOOD UREA NITROGEN,BUN 38.0 mg/dL (8-26); CARBON DIOXIDE,CO2 23.8 mmol/L (21.0-32.0); CHLORIDE,CL 106.0 mmol/L (98-107); CREATININE 2.06 mg/dL (0.55-1.02); EST CRCL DRUG DOSING (CG) 18.32 mL/min; ESTIMATED GFR 24.0 mL/min (>60); GLUCOSE RANDOM 129.0 mg/dL (74-100); POTASSIUM,K 5.6 mmol/L (3.5-5.1); SODIUM,NA 139.0 mmol/L (136-145)
[2025-10-04] MEDS ORDERED: Sodium Chloride 0.9% 10 ML Syringe FLUSH PRN (21:21)
[2025-10-04] MEDS: Sodium Polystyrene Sulfonate 15 GM/60 ML Susp 60 ML Bot PO ONE (21:38)
[2025-10-04 21:51] VITALS: BP 178/75; PULSE 81
== END 2025-10-04 21:45 | disposition home or self-care (01) ==
LOC: LB.ED 19:56
DX: N30.00 Acute cystitis without hematuria (principal); E87.5 Hyperkalemia; I10 Essential (primary) hypertension; E11.9 Type 2 diabetes mellitus without complications; Z91.040 Latex allergy status; Z88.0 Allergy status to penicillin; Z88.5 Allergy status to narcotic agent; Z79.899 Other long term (current) drug therapy; Z88.8 Allergy status to other drugs, medicaments and biological substances; Z79.82 Long term (current) use of aspirin; Z79.84 Long term (current) use of oral hypoglycemic drugs; Z90.49 Acquired absence of other specified parts of digestive tract; Z90.710 Acquired absence of both cervix and uterus
CPT/HCPCS: 36415; 80048; 81001; 82947; 83735; 85027; 87086; 96360; 99284; A9270; J7030